=== PATIENT | female | born 1940 | race Caucasian/White ===

== ENCOUNTER 2016-09-15 17:38 | Emergency (ER) | payer MEDICARE, OTHER ==
[~2016-09-15] VITALS: Ht 167.6 cm; Wt 118.2 kg
[~2016-09-15 17:38] MED LIST: ALBU8.5H2 INHALATION; ASPI325T32 PO; BENZ-12 PO; FLUT16SP NS; FUR20 PO; GUAI10LI PO; HYDR-4003 PO; IRON150C6 PO; LEVO25TA5 PO; LEVO500T16 PO; LOSA50TA37 PO; NPR500T PO; OMEP20CA11 PO; POTA10TA12 PO; PRAM0.5T3 PO; PRED-508 PO; TIOT18CA3 INHALATION; TIZA4TAB4 PO; VALA100026 PO; ZOLP10TA5 PO
[2016-09-15 17:42] VITALS: BP 137/99; PULSE 108; RESP 20; O2SAT 94
--- NOTE | 2016-09-15 17:53 | ED.REPORT ---
HPI- Female Date of Service Sep 15, 2016 ED Provider: History of Present Illness: 76-year-old female here for dysuria, pelvic pressure since yesterday. Last UTI was when she had her children, is assumed 50 years ago. She may have also had one during one of her hospital stays here for pneumonia, she is unsure about this. Her symptoms are little less today than they were yesterday but her urine was cloudy and darker. No fever or back pain. No abdominal pain at this time. She just finished an antibiotic, doxycycline, in the last week for sinus infection. She has had diarrhea related to the sinus infection. She takes diuretics rapidly so her urinary stream is always full and plentiful. She took pyridium today. She admits to taking "wacky candy" [employer] to help with her chronic cough area patient has history of CHF, COPD, A. fib. Nursing Notes Stated Complaint: DARK URINE, HAYES WHEN PEE Chief Complaint: Female Abdominal Pain Nursing Notes Reviewed: Yes Allergies: Coded Allergies: strawberry (Verified Allergy, Intermediate, Swelling, 07/03/14) prednisone (Verified Adverse Reaction, Intermediate, THRUSH, SKIN REACTION , 11/20/15) Uncoded Allergies: RADHA (Allergy, Unknown, 06/08/15) Scheduled Cephalexin (Keflex) 500 Mg Capsule 500 MG PO BID Furosemide (Furosemide) 20 Mg Tab 20 MG PO DAILY Iron Polysaccharides Complex (Ferrex 150) 150 Mg Capsule 150 MG PO DAILY Levofloxacin (Levaquin) 500 Mg Tablet 500 MG PO DAILY Levothyroxine (Levothyroxine) 25 Mcg Tablet 25 MCG PO DAILY Losartan Potassium (Losartan Potassium) 50 Mg Tablet 50 MG PO DAILY Omeprazole (Omeprazole) 20 Mg Capsule.dr 20 MG PO BID Potassium Chloride ER (Potassium Chloride ER) 10 Meq Tablet.er 10 MEQ PO BID TAKE WITH FOOD Pramipexole Dihydrochloride (Mirapex) 0.5 Mg Tablet 0.5 MG PO QID Prednisone (Deltasone) 20 Mg Tablet 60 MG PO DAILY Tiotropium [place] (Spiriva) 18 Mcg Cap.w.dev 18 MCG INHALATION DAILY Scheduled PRN Albuterol HFA (Proair HFA) 8.5 Gm Hfa.aer.ad 2 PUFFS INHALATION QID PRN PRN For Shortness of Breath Aspirin (Aspirin) 325 Mg Tablet.dr 325 MG PO DAILY PRN PRN For Pain Benzonatate (Tessalon Perle) 100 Mg Capsule 100 MG PO TID PRN PRN For Cough Fluticasone Propionate (Fluticasone Propionate Nasal) 16 Gm [place].susp 1 SPRAY NS BID PRN PRN For Congestion Guaifenesin/Codeine Phosphate (Guaifenesin-Codeine Syrup) 10 Ml Liquid 5 ML PO Q4H PRN PRN For Cough Hydrocodone-Acetaminophen 5-325 mg (Hydrocodone-Acetaminophen 5-325 mg) 1 Each Tablet 1 EACH PO QID PRN PRN For Pain Naproxen (Naproxen) 500 Mg Tab 500 MG PO BID PRN PRN For Pain Tizanidine (Tizanidine) 4 Mg Tablet 4 MG PO TID PRN PRN For Spasm Valacyclovir (Valacyclovir) 1,000 Mg Tablet 2,000 MG PO BID PRN PRN cold sores x 1 day only prn cold sores Zolpidem (Zolpidem) 10 Mg Tablet 10 MG PO HS PRN PRN Insomnia General Time Seen by MD: 17:52 Chief Complaint Dysuria, Urine is dark Hx Obtained From: Patient Sudden in Onset?: Yes Onset Occurred: Yesterday Symptom Duration: Waxes and wanes Location: : Suprapubic Radiation: Does not radiate Severity: Current: No pain currently Severity: Maximum: Mild Similar Sx Previous: Yes Risk- Female Risk Notes: diarrhea, A fib, CHF, COPD Past Medical History Past Medical History Restless leg syndrome Hx of anemia Depression Osteoarthritis Anxiety Fibromyalgia COPD, CHF Reports: COPD, Congestive heart failure, GERD, Hyperlipidemia, Hypertension Reports: Atrial fibrillation, Obesity Past Surgical History mastoidectomy Reports: Cholecystectomy, Hysterectomy Reports: Tubal ligation Family History Mother and Father of lung cancer Smoking History Never Smoker Social History Alcohol Use: 1-3 per week Drug Use: Denies drug use Other Social History: Local resident Ambulatory Status Independent Review of Systems Basic Review of Systems Eyes: Vision NL, No discharge Respiratory: No shortness of breath, No cough, No wheeze Cardiovascular: No chest pain, No dyspnea on exertion, No orthopnea, No parox noct dyspnea, No palpitations Psychiatric: Normal thought content Constitutional: Denies: Chills, Fatigue, Fever Female: Reports: Dysuria, Pelvic pain, Denies: Flank pain, Hematuria, Urinary frequency, Urinary urgency, Urination decreased, Urination increased Musculoskeletal: Denies: Back pain Complete sys rev & neg: except as marked. Physical Exam Initial Vital Signs Vital Signs (First) Date Time Temp Pulse Resp B/P Pulse Ox O2 Delivery O2 Flow Rate FiO2 09/15/16 17:42 36.9 108 20 137/99 94 Initial VS: Reviewed, Vital signs normal General/Constitutional: Well-developed, Well-nourished Head / Eyes: Atraumatic, Normocephalic, PERRL Respiratory: Breath sounds normal, Clear to auscultation, No respiratory distress Cardiovascular: Heart sounds normal, Intact distal pulses Abdomen / GI: Soft, Non-tender, No guarding, No rebound, No distention Skin: Warm, Dry, No cyanosis Neurologic: Alert, Oriented, Nonfocal Psychiatric: Mood/affect normal, Behavior normal, Normal thought content Respiratory / Chest: Breath sounds NL, Breath sounds = bilat, No respiratory distress, No rales, No rhonchi, No wheezing Cardiovascular: Heart sounds NL, Peripheral circulation NL Heart Rate / Rhythm: Positive: Irreg irregular rhythm Interpretation & Diagnostics Lab Results Interpretation Test 09/15/16 18:10 Urine Color [place] (YELLOW) Urine Appearance Hazy (CLEAR,HAZY) Urine pH (5.0-8.0) Urine Specific [place] 1.020 (1.003-1.035) Urine Protein mg/dL (NEG,TRACE) Urine Glucose (UA) mg/dL (NEGATIVE) Urine Ketones mg/dL (NEGATIVE) Urine Occult Blood (NEGATIVE) Urine Nitrite (NEGATIVE) Urine Bilirubin (NEGATIVE) Urine Urobilinogen mg/dL (NORMAL) Urine Leukocyte Esterase (NEGATIVE) Urine RBC 0-2/hpf (0-2) Urine WBC 6-10/hpf (0-5) Urine Epithelial Cells Occasional/hpf (NONE-MOD) Urine Crystals None seen (NONE SEEN) Urine Bacteria Few/hpf (NONE-FEW) Urine Hyaline Casts None/lpf (NONE) Urine Granular Casts None seen (NONE SEEN) Urine Waxy Casts None seen (NONE SEEN) Urine Red Blood Cell Casts None seen (NONE SEEN) Urine White Blood Cell Casts None seen (NONE SEEN) Urine Mucus Present (None Seen) Urine Trichomonas None seen (NONE SEEN) Urine Yeast None (NONE SEEN) Urinalysis Comment Urine Culture Reflexed Indicated Re-Eval/Medical Decision Med Decision/Clinical Course Patient states the dark color she was concerned about was just the Pyridium she is taking. She is still having dysuria since yesterday treated for UTI with Keflex and she will follow up as indicated. Discharge & Departure Shift Change Sign-Out Laboratory Evaluation: Lab evaluation discussed Impression: Primary Impression: UTI (urinary tract infection) Urinary tract infection type: acute cystitis Hematuria presence: without hematuria Qualified Code: N30.00 - Acute cystitis without hematuria Disposition: Home Discharge Condition All VS Reviewed: Yes Condition: Stable Patient Instructions: Urinary Tract Infection in Women (DC) Additional Instructions: Take antibiotics as prescribed. Drink lots of water. If her symptoms do not improve in 24-48 hours return to emergency room. Follow-up with her doctor in 1 -2 days as well. Return immediately to emergency room if fevers, vomiting, back pain or any other concerning symptoms. Referrals: Jen Munguia MD (PCP) EDSupervising Provider for APC: Juan Thornton MD copies to: Jen Munguia MD, Linnea K [facility] Sep 15, 2016 17:53
[2016-09-15 18:35] LABS: COLOR,URINE ORANGE (YELLOW)
[2016-09-15 18:36] LABS: APPEARANCE,URINE HAZY (CLEAR,HAZY)
[2016-09-15] MEDS ORDERED: CEPH-512 PO (19:35)
[2016-09-15 19:52] VITALS: BP 137/99; PULSE 108; RESP 20; O2SAT 94
== END 2016-09-15 19:53 | disposition home or self-care (01) ==
LOC: SED 17:38
DX: N30.00 Acute cystitis without hematuria (principal); B96.4 Proteus (mirabilis) (morganii) as the cause of diseases classified elsewhere; I11.0 Hypertensive heart disease with heart failure; I50.9 Heart failure, unspecified; I48.91 Unspecified atrial fibrillation; J44.9 Chronic obstructive pulmonary disease, unspecified; E78.5 Hyperlipidemia, unspecified; K21.9 Gastro-esophageal reflux disease without esophagitis; F32.9 Major depressive disorder, single episode, unspecified; M79.7 Fibromyalgia; Z79.82 Long term (current) use of aspirin; Z88.8 Allergy status to other drugs, medicaments and biological substances; Z91.018 Allergy to other foods

== ENCOUNTER 2016-12-06 18:09 | Inpatient (IN) | payer MEDICARE, OTHER ==
[~2016-12-06] VITALS: Ht 167.6 cm; Wt 129.9 kg
[~2016-12-06 18:09] MED LIST changes: +CEPH-512 PO
[2016-12-06 18:14] VITALS: BP 171/71; PULSE 122; RESP 24; O2SAT 93
[2016-12-06 18:35] VITALS: BP 163/88; PULSE 98; RESP 23; O2SAT 97
--- NOTE | 2016-12-06 18:59 | ED.REPORT ---
HPI-Abd Pain F 40 and Over Date of Service Dec 06, 2016 ED Provider: Manny Neal MD This is a 76-year-old female with history of diverticulitis, kidney stones, COPD , hypertension who presents for abdominal pain. Pain started this morning around 5 AM patient woke up and went to bathroom and was straining so ended up using a Fleet glycerin suppository and subsequently 2 episodes of diarrhea. This is about the time of when the pain started she said. Her pain has been sustained in the left lower quadrant and feels better with walking as well as marijuana candy. She does note she had pain similar to this before with kidney stones and diverticulitis. She has had a cholecystectomy in the past and a hysterectomy. She has had chills since coming into the emergency department. She does note she is had increasing cough with green sputum production which she states is chronic. Also notes she has had a sinus infection and has not taken any antibiotics. She denies any current chest pain, and is slightly short of breath. Nursing Notes Stated Complaint: LEFT SIDE PAIN Chief Complaint: Female Abdominal Pain Nursing Notes Reviewed: Yes Allergies: Coded Allergies: strawberry (Verified Allergy, Intermediate, Swelling, 07/03/14) Uncoded Allergies: RADHA (Allergy, Unknown, 06/08/15) Scheduled Cephalexin (Keflex) 500 Mg Capsule 500 MG PO BID Furosemide (Furosemide) 20 Mg Tab 20 MG PO DAILY Iron Polysaccharides Complex (Ferrex 150) 150 Mg Capsule 150 MG PO DAILY Levofloxacin (Levaquin) 500 Mg Tablet 500 MG PO DAILY Levothyroxine (Levothyroxine) 25 Mcg Tablet 25 MCG PO DAILY Losartan Potassium (Losartan Potassium) 50 Mg Tablet 50 MG PO DAILY Omeprazole (Omeprazole) 20 Mg Capsule.dr 20 MG PO BID Potassium Chloride ER (Potassium Chloride ER) 10 Meq Tablet.er 10 MEQ PO BID TAKE WITH FOOD Pramipexole Dihydrochloride (Mirapex) 0.5 Mg Tablet 0.5 MG PO QID Prednisone (Deltasone) 20 Mg Tablet 60 MG PO DAILY Tiotropium [place] (Spiriva) 18 Mcg Cap.w.dev 18 MCG INHALATION DAILY Scheduled PRN Albuterol HFA (Proair HFA) 8.5 Gm Hfa.aer.ad 2 PUFFS INHALATION QID PRN PRN For Shortness of Breath Aspirin (Aspirin) 325 Mg Tablet.dr 325 MG PO DAILY PRN PRN For Pain Benzonatate (Tessalon Perle) 100 Mg Capsule 100 MG PO TID PRN PRN For Cough Fluticasone Propionate (Fluticasone Propionate Nasal) 16 Gm [place].susp 1 SPRAY NS BID PRN PRN For Congestion Guaifenesin/Codeine Phosphate (Guaifenesin-Codeine Syrup) 10 Ml Liquid 5 ML PO Q4H PRN PRN For Cough Hydrocodone-Acetaminophen 5-325 mg (Hydrocodone-Acetaminophen 5-325 mg) 1 Each Tablet 1 EACH PO QID PRN PRN For Pain Naproxen (Naproxen) 500 Mg Tab 500 MG PO BID PRN PRN For Pain Tizanidine (Tizanidine) 4 Mg Tablet 4 MG PO TID PRN PRN For Spasm Valacyclovir (Valacyclovir) 1,000 Mg Tablet 2,000 MG PO BID PRN PRN cold sores x 1 day only prn cold sores Zolpidem (Zolpidem) 10 Mg Tablet 10 MG PO HS PRN PRN Insomnia General Time Seen by MD: 18:40 Chief Complaint Abdominal pain Hx Obtained From: Patient Sudden in Onset?: Yes Past Medical History Past Medical History Restless leg syndrome Hx of anemia Depression Osteoarthritis Anxiety Fibromyalgia COPD, CHF Reports: COPD, Congestive heart failure, GERD, Hyperlipidemia, Hypertension Reports: Atrial fibrillation, Obesity Past Surgical History mastoidectomy Reports: Cholecystectomy, Hysterectomy Reports: Tubal ligation Family History Mother and Father of lung cancer Smoking History Former Smoker Social History Alcohol Use: 1-3 per week Drug Use: Denies drug use Other Social History: Local resident Ambulatory Status Independent Review of Systems Constitutional: Reports: Chills, Fever Respiratory: Reports: Prod cough, green Cardiovascular: Denies: Chest pain GI: Reports: Abdominal pain, Constipation, Diarrhea, Nausea, Denies: Hematochezia, Melena, Vomiting Female: Denies: Dysuria, Urinary frequency, Urinary urgency Complete sys rev & neg: except as marked. Physical Exam Vital Signs Vital Signs (First) Date Time Temp Pulse Resp B/P Pulse Ox O2 Delivery O2 Flow Rate FiO2 12/06/16 18:14 38.2 122 24 171/71 93 Nasal Cannula 12/06/16 18:35 3 Initial VS: Reviewed General/Constitutional: Awake, Alert, Cooperative Distress / Hydration: Positive: Distress mild On 3 L oxygen with tachypnea, crackles heard at left lung base. Decreased breath sounds in the lungs Cardiovascular: Regular rhythm, No murmurs Heart Rate / Rhythm: Positive: Tachycardia Abdomen: Soft, McBurney's non-tender Mild to moderate distention with mild LLQ > LUQ tenderness. Abdomen is protuberant and is difficult to assess for organomegaly or masses. No CVA tenderness. Dry skin, mild edema Interpretation & Diagnostics Lab Results Interpretation Result Diagram: 12/06/16 1845 12/06/16 1845 Test 12/06/16 18:45 12/06/16 20:45 White Blood Count 11.0th/mm3 (3.8-10.1) Red Blood Count 5.10mil/mm3 (3.90-5.20) Hemoglobin 13.6g/dL (12.0-15.6) Hematocrit 43.0% (35.0-46.0) Mean Corpuscular Volume 84.3fL (81-100) Mean Corpuscular Hemoglobin 26.7pg (27.0-35.0) Mean Corpuscular Hemoglobin Concent 31.6% (32.0-37.0) Red Cell Distribution Width 15.4% (12.3-15.4) Platelet Count 182bil/L (150-400) Neutrophils (%) (Auto) 90.3% (40-74) Lymphocytes (%) (Auto) 6.5% (14-46) Monocytes (%) (Auto) 1.8% (4-12) Eosinophils (%) (Auto) 0.6% (0-5) Basophils (%) (Auto) 0.3% (0-3) Sodium Level 141mEq/L (134-144) Potassium Level 3.5mEq/L (3.5-5.2) Chloride Level 98mEq/L (97-108) Carbon Dioxide Level 27mmol/L (18-29) Blood Urea Nitrogen 18mg/dL (8-27) Creatinine 0.75mg/dL (0.57-1.00) Estimat Glomerular Filtration Rate 108mL/min (>59) Glucose Level 137mg/dL (60-99) Lactic Acid Level 2.0mmol/L (0.4-2.0) Calcium Level 9.6mg/dL (8.5-10.1) Magnesium Level 2.1mg/dL (1.6-2.6) Total Bilirubin 0.4mg/dL (0.0-1.2) Aspartate Amino Transf (AST/SGOT) 26U/L (0-50) Alanine Aminotransferase (ALT/SGPT) 29U/L (0-32) Alkaline Phosphatase 79U/L (25-165) Total Protein 8.3g/dL (6.4-8.4) Albumin 4.5g/dL (3.4-5.0) Lipase 26U/L (13-60) Hold Sanchez Top Tube Received (Received) Urine Color Yellow (YELLOW) Urine Appearance Cloudy (CLEAR,HAZY) Urine pH 8.0 (5.0-8.0) Urine Specific [place] 1.015 (1.003-1.035) Urine Protein Tracemg/dL (NEG,TRACE) Urine Glucose (UA) Negativemg/dL (NEGATIVE) Urine Ketones Negativemg/dL (NEGATIVE) Urine Occult Blood Large (NEGATIVE) Urine Nitrite Positive (NEGATIVE) Urine Bilirubin Negative (NEGATIVE) Urine Urobilinogen Normalmg/dL (NORMAL) Urine Leukocyte Esterase Moderate (NEGATIVE) Urine RBC 0-2/hpf (0-2) Urine WBC 6-10/hpf (0-5) Urine Epithelial Cells Moderate/hpf (NONE-MOD) Urine Crystals Amorphous phosphates Urine Bacteria Many/hpf (NONE-FEW) Urine Hyaline Casts None/lpf (NONE) Urine Granular Casts None seen (NONE SEEN) Urine Waxy Casts None seen (NONE SEEN) Urine Red Blood Cell Casts None seen (NONE SEEN) Urine White Blood Cell Casts None seen (NONE SEEN) Urine Mucus None seen (None Seen) Urine Trichomonas None seen (NONE SEEN) Urine Yeast None (NONE SEEN) Urinalysis Comment None Urine Culture Reflexed Indicated Re-Eval/Medical Decision Med Decision/Clinical Course This is a 76-year-old male with history of COPD, hypertension, GERD who presents to the ED with left lower quadrant abdominal pain starting today. She also has increasing productive cough with green sputum and a reported sinus infection. Her symptoms of abdominal pain did resolve with Tylenol given in the ED, she was found to be febrile, tachycardic, tachypneic requiring 3 L of oxygen. She is on baseline oxygen at home of 2 L. She has white blood cell count of 11. UA shows moderate leukocyte esterase, positive nitrite and white blood cells 6-10. Chest x-ray shows left lower lobe pneumonia. Given her findings, she was given ceftriaxone and azithromycin for likely community- acquired pneumonia and possible UTI. Discussed with hospitalist with plan for admission. Re-Evaluation/Progress : Time of Eval: 21:45 )( Re-Eval Abdomen: Soft, Non-tender Patient Status: Condition improved Re-Evaluation/Progress Note: Patient was given Tylenol and had relief of her abdominal pain. Abdominal physical exam is unremarkable. Consultation : Referral / Consult Name: Ady Blanca MD Consulted With: Hospitalist Sports Photographer: Accepts admit Discharge & Departure Primary Impression: Pneumonia Pneumonia type: due to unspecified organism Laterality: left Lung location : lower lobe of lung Qualified Code: J18.1 - Lobar pneumonia, unspecified organism Additional Impression: UTI (urinary tract infection) Urinary tract infection type: site unspecified Hematuria presence: without hematuria Qualified Code: N39.0 - Urinary tract infection, site not specified Disposition: ADMITTED TO HOSPITAL Discharge Condition All VS Reviewed: Yes Condition: Stable Referrals: Jen Munguia MD (PCP) Attending Statement I personally examined this patient with Dr Blanton on 12/06. Agree with above. copies to: Jen Munguia MD, Malik A DO Dec 06, 2016 18:59 Manny Neal MD Dec 06, 2016 23:53
[2016-12-06] MEDS ORDERED: Ondansetron 2 mg/mL 2 mL Inj IVPUSH PRN ×2 (19:05→21:55)
[2016-12-06] MEDS ORDERED: HYDROmorphone 0.5 mg/0.5 mL iSecure Syringe IVPUSH PRN (19:05)
[2016-12-06] MEDS ORDERED: 0.9% Sodium Chloride 1,000 ML IV ONE (19:05)
[2016-12-06 19:14] LABS: BASOPHILS % (AUTO) 0.3 % (0-3); EOSINOPHILS % (AUTO) 0.6 % (0-5); MONOCYTES % (AUTO) 1.8 % (4-12); Mean Corpuscular Hemoglobin 26.7 pg (27.0-35.0); Mean Corpuscular Volume 84.3 fL (81-100); NEUTROPHILS % (AUTO) 90.3 % (40-74); Platelet Count 182 bil/L (150-400)
[2016-12-06 19:22] LABS: Magnesium 2.1 mg/dL (1.6-2.6)
[2016-12-06 19:26] VITALS: BP 168/93; PULSE 117; RESP 28; O2SAT 94
--- NOTE | 2016-12-06 19:50 | DRSVH ---
PROCEDURE: X-RAY CHEST ONE VIEW, PORTABLE ([id number]) INDICATIONS: fever low O2 sats TECHNIQUE: One view of the chest was acquired. COMPARISON: None. FINDINGS: Surgical changes and devices: athletic monitor leads are seen over the chest. Lungs and pleura: There is chronic elevation of the right hemidiaphragm. Depth of inspiration on thi s chest x-ray is relatively poor. No pleural effusions or pneumothorax. Probable small infiltrate at the left base. Probable subsegmental atelectasis at the right base. Mediastinum: Mediastinal contours appear normal. Aorta is elongated. Heart size is normal. Bones and chest wall: No suspicious bony lesions. Overlying soft tissues appear unremarkable. IMPRESSION: Changes of pneumonia in the left lower lung field laterally. Dictated by: Darnell Welsh M.D. on 12/06/2016 at 19:47 Approved by: Darnell Welsh M.D. on 12/06/2016 at 19:48
[2016-12-06 21:11] LABS: APPEARANCE,URINE CLOUDY (CLEAR,HAZY); COLOR,URINE YELLOW (YELLOW); OCCULT BLOOD,URINE LARGE (NEGATIVE); UROBILINOGEN,URINE NORMAL (NORMAL)
[2016-12-06] MEDS ORDERED: Alum-Mag Hydrox-Simeth 30 mL Suspension PO PRN (21:55)
[2016-12-06] MEDS ORDERED: cefTRIAXone Inj 2,000 MG in Dextrose 5% Minibag Plus 50 ML IV ONE (21:55)
[2016-12-06] MEDS ORDERED: Polyethylene Glycol (PEG) 17 Gm Powder PO PRN (21:55)
[2016-12-06 22:39] VITALS: BP 161/90; PULSE 114; RESP 24; O2SAT 95
--- NOTE | 2016-12-06 22:46 | PCM.HPMED ---
Subjective Date of Service Dec 06, 2016 Primary Provider: Admitting Physician: Ady Blanca MD Primary Care Physician: Jen Munguia MD Attending Physician: Ady Blanca MD Admit Status: From the Emergency Department, Remote Telemetry Chief Complaint: Left lower quadrant abdominal pain History of Present Illness: Ms. Bryanna Oseguera (Kay) is a 76-year-old woman with a past medical history significant for hypertension, hyperlipidemia, recurrent urinary tract infections , diverticulitis, nephrolithiasis, and COPD, that presented to the emergency department 12/06/2016 with a one-day history of constipation that led to left lower quadrant pain after administration of uwof-ocg-nixatlw laxatives. Initial evaluations in the emergency department revealed a chest x-ray with a possible left lower lobe pneumonia in addition to urinary studies that revealed a likely urinary tract infection. She is admitted for evaluation and treatment of possible pneumonia, likely UTI, and management of her abdominal pain. - Hospital day 1 Patient states that symptoms of constipation and straining initiated mounter flutes and piccolos today on admission. She attempted to relieve her constipation and straining with kvjp-anu-pzjkcjn laxatives, including a Fleet glycerin suppository. She subsequently developed 2 episodes of diarrhea, which were described as nonbloody, but she states her left lower quadrant abdominal pain began with her episodes of diarrhea. She denies any associated shortness of breath above baseline, fever, hematochezia, melena, dysuria, hematuria, or chest pain or palpitations. She does admit to brief onset of chills while she was in the emergency department, which have resolved. She also notes that her abdominal pain has resolved since her time in the emergency department. She notes an extensive history of shortness of breath on chronic oxygen therapy approximately 2-3 L secondary to COPD, she denies any acute dyspnea above baseline. She also notes a chronic cough with intermittent productive sputum, that is not above her baseline. She notes a recent history of prednisone use, but states her prednisone pack has completed, and she remains on inhaled steroids at this time. PCP is Jaylene Munguia, sewing machines salesperson is Dr. Ning Pichardo. Last pulmonology visit dated 06/20/2016; most recent PCP visit dated 11/18/2016. In the ED, T 38.2, P1 122, R 24, blood pressure 171/71, 93% on 3 L nasal cannula ; initial labs showed white count 11.0 with 80.3% neutrophils, hemoglobin 13.6, hematocrit 43.0, platelets 182; sodium 141, potassium 3.5, creatinine 0.75, glucose 137, lactic acid 2.0, LFTs within range, lipase 26; UA revealed large amount of occult blood, positive nitrites, moderate leukocyte esterase, moderate epithelial cells, and no white cells seen, culture was sent and pending ; blood cultures were also obtained prior to antibiotic administration; initial therapies included azithromycin 500 mg 1, ceftriaxone 2 g every 24h, acetaminophen 975 mg 1, and 1 L normal saline. Patient was transported to medical floor in stable condition. Review of Systems: Complete review of systems obtained, pertinent positives and negatives as noted in history of present illness Allergies Coded Allergies: strawberry (Verified Allergy, Intermediate, Swelling, 07/03/14) Uncoded Allergies: RADHA (Allergy, Unknown, 06/08/15) Home Medications NextGen Documentation dated 11/18/2016: Bryanna Oseguera. [id number] 11/18/2016 11:20 AM 04/20 Medications (Added or Continued this visit) Start Date Medication Directions Stop Date 05/07/2016 albuterol sulfate 2.5 mg/3 mL (0.083 %) solution for nebulization inhale 3 milliliter by nebulization route every 4 hours for breathing. 03/28/2014 aspirin 325 mg tablet take 1 tablets by ORAL route every day as needed 01/29/2016 chlorpheniramine ER 12 mg tablet,extended release take 1 tablet by oral route every 12 hours as needed for allergies 07/24/2015 Daily Multiple tablet take 1 tablet by oral route every day with food LAILA-C 2 twice daily Fish Oil 1 daily 11/20/2015 Flonase 50 mcg/actuation nasal spray,suspension USE ONE SPRAY(S) IN EACH NOSTRIL 1-2 TIMES DAILY FOR ALLERGIES 11/20/2016 hydrocodone 5 mg-acetaminophen 325 mg tablet take 1 Tablet by ORAL route 4 times a day as needed for pain 12/19/2016 11/18/2016 Lasix 20 mg tablet TAKE 2 TABLETS BY MOUTH 2 TIMES DAILY IN THE MORNING and AFTERNOON 10/18/2016 LEVOTHYROXIN 25MCG TAB TAKE ONE TABLET BY MOUTH ONCE DAILY FOR THYROID 04/25/2015 levothyroxine 50 mcg tablet take 1 tablet by oral route every day on an empty stomach 07/08/2016 LOSARTAN 50MG TAB TAKE ONE TABLET BY MOUTH ONCE DAILY FOR HIGH BLOOD PRESSURE 07/05/2016 Mirapex 0.5 mg tablet TAKE ONE TABLET BY MOUTH 4 TIMES DAILY 06/24/2016 montelukast 10 mg tablet take 1 tablet by oral route every day in the evening PEDIA-LAX as needed 01/29/2016 potassium chloride ER 10 mEq tablet,extended release take 1 tablet by oral route once daily with food 11/18/2016 prednisone 5 mg tablet take 1 tablet by oral route every day with food 11/21/2015 ProAir HFA 90 mcg/actuation aerosol inhaler inhale 2 puff by inhalation route every 4 - 6 hours as needed for shortness of breath/wheezing 04/18/2016 Pulmicort Flexhaler 180 mcg/actuation breath activated inhale 1 puff by inhalation route 2 times every day for breathing. Rinse mouth after use. 04/26/2016 ranitidine 150 mg tablet take 1 tablet by oral route 2 times every day for heartburn/reflux 04/26/2016 Spiriva with HandiHaler 18 mcg and inhalation capsules inhale 1 capsule by inhalation route every day Stool Softener take 1 capsule by oral route every day at bedtime as needed 06/20/2016 Symbicort 160 mcg-4.5 mcg/actuation HFA aerosol inhaler inhale 2 puff by inhalation route 2 times every day in the morning and evening 08/27/2016 TiZANidine 4MG TAB TAKE ONE TABLET BY MOUTH 2 TO 3 TIMES DAILY NEEDED FOR MUSCLE SPASM (REPLACING CYCLOBENZAPRINE) VITAMIN D-400 1 daily 07/24/2015 Vivarin 200 mg tablet as needed 07/30/2016 zolpidem 10 mg tablet TAKE ONE TABLET BY MOUTH AT BEDTIME NEEDED FOR INSOMNIA The patient was checked out at 11:46 AM. Patient denies any changes to medication since her visit with her primary care physician on the date noted above. 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 Son was tested positive for PPD, patient has since been tested and has been negative. Extensive travel history including [place], [place], [place], and [facility]. Surgical History Cholecystectomy Hysterectomy Bilateral cataracts Family History Father: Lung cancer, alcoholism, myocardial infarction Grandmother: Diabetes Mother: Lung cancer, depression Patient is an only child Social History Hx Alcohol Use: Yes (2 cocktails every week) Hx Substance Use: Yes (marijuana daily for cough) Smoking Status: Former Smoker Living Arrangement: with Family Exam Vital Signs Vital Sign - Last Date Time Temp Pulse Resp B/P Pulse Ox O2 Delivery O2 Flow Rate FiO2 12/06/16 19:26 117 28 168/93 94 Nasal Cannula 3 12/06/16 18:14 38.2 Exam General: Alert and oriented 3; obese woman resting supine in bed in no acute distress HEENT: Atraumatic, normocephalic, sclera anicteric, membranes moist; NC in place Neck: Full range of motion without pain Cardiac: Tachycardic rate and regular rhythm at time of examination without any appreciable murmurs Respiratory: Equal and adequate airflow all olivares without any wheeze or rhonchi ; no use of accessory muscles Chest: Atraumatic without any reproducible pain with palpation Abdomen: Soft, nontender, nondistended, obese; no pain at time of admission Extremities: Moderate bilateral lower extremity edema extending from dorsum to knees with chronic venous stasis changes Skin: Warm and dry MSK: 5/5 strength 4/4 extremities at major joints of the shoulder, hip Neuro: Cranial nerves II-XII grossly intact, speech without slur, facial expressions equal and symmetric Psych: Appropriate mood, affect, and responses to questions; good insight and judgment; patient was noted to be somewhat upset with decision for admission Lab and Diagnostics Result Diagram: 12/06/16184412/06/161844 Assessment & Plan Ms. Bryanna Oseguera (Kay) is a 76-year-old woman with a past medical history significant for hypertension, hyperlipidemia, recurrent urinary tract infections , diverticulitis, nephrolithiasis, and COPD, that presented to the emergency department 12/06/2016 with a one-day history of constipation that led to left lower quadrant pain after administration of zwaj-blt-rfzkqfp laxatives. Initial evaluations in the emergency department revealed a chest x-ray with a possible left lower lobe pneumonia in addition to urinary studies that revealed a likely urinary tract infection. She is admitted for evaluation and treatment of possible pneumonia, likely UTI, and management of her abdominal pain. - Hospital day 1 Sepsis, acute, present on admission, under evaluation - On admit: T 38.2, P 122, R 24; likely source UTI, possible PNA - White count on admission: 11.0 with 90.3% neutrophils; this may be slightly elevated above reference range secondary to recent steroid use, and possibly early indication of developing infection - In ED: Abx azithromycin plus ceftriaxone; will continue at this time - Tele - Treat underlying causes Urinary tract infection, acute, present on admission, under therapy - Patient denied any urinary symptoms such as dysuria, hematuria, flank pain; but did admit to recent history of left lower quadrant pain on admission - Abdominal pain resolved after administration of Tylenol in ED - Initial UA: Large amount occult blood, positive nitrites, moderate leukocyte esterase, moderate epithelial cells, with many bacteria, culture was sent, currently pending - Likely the source of sepsis as noted above - Continue antibiotics as noted above Possible pneumonia, likely acute, present on admission, under evaluation - Patient reports history of significant lung disease without new respiratory symptoms including any increase above baseline in cough or sputum production - Antibiotics as noted above, we will continue azithromycin at this time secondary to anti-inflammatory effects - Repeat 2 view chest x-ray morning - Labs: Pro-calcitonin, respiratory viral swab, strep pneu urine, legionella urine, sputum cx Constipation with resultant abdominal pain of left lower quadrant, acute, resolved at time of admission - Patient noted acute onset of abdominal pain earlier this morning which was initiated by use of laxatives for constipation which resulted in diarrhea episodes - Patient denied any abnormal color stools, including the presence of blood - Patient denied any ongoing abdominal pain at time of admission - We will continue to monitor for any GI symptoms - Abdominal pain likely secondary to use of glycerin suppositories and resultant cramping from colon and stool mobilizing Chronic hypoxemic respiratory failure secondary to advancing COPD, presumed stable - Not likely an acute exacerbation secondary to lack of symptoms including increased sputum production, increase in cough baseline, or increase in oxygen needs - Patient reports home oxygen use approximately 2-3 L, notably with exertion but not required at rest - We will continue to monitor and initiate home medications when reconciliations completed - Outpatient sewing machines salesperson: Dr. Kylee Azul qidwa + accunebs q2h; no systemic steroids indicated at this time Hypothyroidism, chronic, presumed stable - Resume home medications when reconciliation complete and when appropriate Hypertension, chronic, presumed stable - Resume home medications when reconciliation complete and when appropriate Restless leg syndrome, chronic, presumed stable - Resume home medications when reconciliation complete and when appropriate PRN fever, bowel, nausea, pain DVT: Hep q8 Diet: Heart GI: H2B IVF: NS 100 Code: FULL CODE Patient is admitted under inpatient status with expected length of stay greater than 2 midnights due to severity of presenting symptoms, risk of adverse event, and complexity of treatment plan. Pain Evaluation: Adequate Pain Control GI Prophylaxis: H2 tomy VTE Prophylaxis: Sub-Q Heparin (Unfractionated) Resuscitation Status: DNR/DNI:Do Not Resuscitate/Intubate Attending Statement The patient was seen and examined together with Dr. Mckeon on 12/06 and I agree with the history, exam and plan as outlined in the note above. copies to: Ning Pichardo MD; Jen Munguia MD, Lindsay R DO Dec 06, 2016 22:46 Ady Blanca MD Dec 07, 2016 19:19
[2016-12-06 22:50] VITALS: BP 136/92; PULSE 107; RESP 22; O2SAT 95
--- NOTE | 2016-12-06 22:55 | NUR ---
Admission Note Pt admitted to [facility] from ER on stretcher at 2245, alert and orientedx3, states generalized pain 2/10, cough intermittently, small green sputum, SOB with activities. Burning sensation with urination. Denies N/V/Abdominal pain/fever/chills. BP 136/92 HR 102 RR 22, SPO2 95% on O2 4l, will place [employer]AW FEEDER and titrate O2 based on SPO2 due to HX COPD. T 37.1. Moderately decreased lung sounds, no crackles or wheezes note. HR 102,regular, no murmur. Tele: SR 102. Abdomen soft, non tender,BT slightly hypoactive. Mild edema at LEs. Call light oriented to pt, bed alarm on. Care ongoing.
[2016-12-06] MEDS: Albuterol 2.5 mg/3 mL Inhalation Solution NEB PRN (23:58)
[2016-12-06 23:59] VITALS: PULSE 84; RESP 22; O2SAT 95
[2016-12-07] VITALS (18 sets, daily range): BP systolic 87–186; BP diastolic 55–88; PULSE 69–130; RESP 18–40; O2SAT 88–98
[2016-12-07] MEDS: 0.9% Sodium Chloride 1,000 ML IV SCH ×3 (00:17→13:23)
[2016-12-07] MEDS: Heparin 5,000 Unit/mL Inj SUBQ SCH ×4 (00:18→23:54)
--- NOTE | 2016-12-07 02:01 | NUR ---
Samples for Sputum culture, MSRA and Respiratory CPR sent to lab.
[2016-12-07] MEDS ORDERED: RANI150C4 PO (04:09)
[2016-12-07] MEDS ORDERED: POTA10TA12 PO (04:09)
[2016-12-07] MEDS ORDERED: FURO-129 PO (04:09)
[2016-12-07] MEDS ORDERED: Stool Softner ORAL (04:09)
[2016-12-07] MEDS ORDERED: DAILY MULTIPLE ORAL (04:09)
[2016-12-07] MEDS ORDERED: PRD5T PO (04:09)
[2016-12-07] MEDS ORDERED: VITAMIN D ORAL (04:09)
[2016-12-07] MEDS ORDERED: [UNRECOGNIZED DRUG - CODE] RECTAL (04:09)
[2016-12-07] MEDS ORDERED: SYMINH INHALATION (04:09)
[2016-12-07] MEDS ORDERED: ASCO1TAB12 PO (04:09)
[2016-12-07] MEDS ORDERED: ALBU2.5V4 NEB (04:09)
[2016-12-07] MEDS ORDERED: LEVO50TA6 PO (04:09)
[2016-12-07] MEDS ORDERED: VIVARIN ORAL (04:09)
[2016-12-07] MEDS ORDERED: CHLORPHENIRAMINE ORAL (04:09)
[2016-12-07] MEDS ORDERED: MONT10TA23 PO (04:09)
[2016-12-07] MEDS ORDERED: OMEG500C PO (04:09)
[2016-12-07] MEDS ORDERED: FLUT9.9S NS (04:09)
[2016-12-07 06:00] LABS: BASOPHILS % (AUTO) 0.1 % (0-3); EOSINOPHILS % (AUTO) 0.1 % (0-5); MONOCYTES % (AUTO) 5.2 % (4-12); Mean Corpuscular Hemoglobin 26.6 pg (27.0-35.0); Mean Corpuscular Volume 85.6 fL (81-100); NEUTROPHILS % (AUTO) 89.9 % (40-74); Platelet Count 158 bil/L (150-400)
[2016-12-07] MEDS: HYDROcodone-APAP 5-325 mg Tablet PO PRN ×3 (06:13→23:53)
[2016-12-07] MEDS: Budesonide 0.5 mg/2 mL Inhalation Solution NEB SCH ×3 (07:47→20:30)
[2016-12-07] MEDS: Albuterol-Ipratropium 3 mL Inhalation Solution NEB SCH ×4 (07:47→20:11)
[2016-12-07] MEDS ORDERED: 0.9% Sodium Chloride 1,000 ML IV ONE (07:55)
[2016-12-07] MEDS ORDERED: Piperacillin-Tazo 3.375 Gm Inj 3.375 GM in Dextrose 5% Minibag Plus 50 ML IV ONE (07:55)
--- NOTE | 2016-12-07 10:05 | NUR ---
To PCC Patient was porter in color, wheezing, and SOB upon assessment. Patient able to open eyes temporarily and speak one word sporadically. Patient oxygen was increased to 6L and RT was called. Nurse also called charge nurse and notified MD of patients condition. Patient was transferred to [facility] 2028 and report given to Kristi WAITE on PCC. Patient transferred to [facility] at 1050. Daughter was notified.
[2016-12-07] MEDS: Acetaminophen IV 1,000 MG in IV Premix 1 EACH IV PRN (10:35)
[2016-12-07] MEDS: Fluticasone 0.05% 15 Spray/2 Gm 16 Gm Nasal Spray NASAL SCH ×2 (10:35→21:13)
--- NOTE | 2016-12-07 12:48 | DRSVH ---
PROCEDURE: X-RAY CHEST ONE VIEW, PORTABLE ([id number]) INDICATIONS: poss PNA TECHNIQUE: One view of the chest was acquired. COMPARISON: [facility], CR, XR CHEST 2VW, 06/20/2016, 11:06. [facility], CR , XR CHEST 1VW (PORTABLE), 12/06/2016, 19:28. FINDINGS: Surgical changes and devices: None. Lungs and pleura: Left basilar infiltrate suspicious for pneumonia. Chronic right hemidiaphragm elev ation and right basilar atelectasis. No pleural effusions or pneumothorax. Mediastinum: Mediastinal contours appear normal. Heart size is normal. Bones and chest wall: No suspicious bony lesions. Overlying soft tissues appear unremarkable. IMPRESSION: 1. Left basilar infiltrate suspicious for pneumonia. 2. Chronic right hemidiaphragm elevation right basilar atelectasis. Dictated by: Roseline Contreras M.D. on 12/07/2016 at 12:43 Approved by: Roseline Contreras M.D. on 12/07/2016 at 12:46
[2016-12-07] MEDS: Piperacillin-Tazo 3.375 Gm Inj 3.375 GM in Dextrose 5% Minibag Plus 50 ML IV SCH ×2 (13:31→21:14)
--- NOTE | 2016-12-07 14:15 | PCM.PNMED ---
Subjective Date of Service Dec 07, 2016 Subjective pt became obtuned this AM, afebrile, tachycardic, Given impression of worsening sepsis, abx broadened to zosyn 1liter bolus given followed by 100cc/hr pt noted to hypoxic pO2 55 on Oxymask, transferred to [facility] for further monitoring, Later PM, pt became alert and oriented, tachycardia improved. Exam Vital Signs Vital Sign - Last Date Time Temp Pulse Resp B/P Pulse Ox O2 Delivery O2 Flow Rate FiO2 12/07/16 11:30 115 22 96 HHFNC 40 LPM 50 12/07/16 11:30 40 12/07/16 08:57 38.8 117/72 Intake and Output 12/06/16 12/06/16 12/07/16 Cumulative From/Thru 15:00 23:00 07:00 12/06/16 18:14 - 12/07/16 06:23 Intake Total 1000 ml 799 ml 1799 ml Output Total 150 ml 150 ml Balance 1000 ml 649 ml 1649 ml Intake Oral 300 ml 300 ml IV Total 1000 ml 499 ml 1499 ml Output Urine Total 150 ml 150 ml # Voids 1 1 Exam NAD, comfortably laying down on the bed no JVD, MMM, no LAD tachy regular, nl s1, s2 no mrg bilateral crackles, no wheezing S,ND,NT,normoactive BS+ warm, no edema, pulses 2/2 IVs and Medications Medications Reviewed: Medications were reviewed in detail Lab and Diagnostics Result Diagram: 12/07/16 0545 12/07/16 0545 Assessment & Plan Ms. Bryanna Oseguera (Kay) is a 76-year-old woman with a past medical history significant for hypertension, hyperlipidemia, recurrent urinary tract infections , diverticulitis, nephrolithiasis, and COPD, that presented to the emergency department 12/06/2016 with a one-day history of constipation that led to left lower quadrant pain after administration of ahjd-ren-sabfwet laxatives. Initial evaluations in the emergency department revealed a chest x-ray with a possible left lower lobe pneumonia in addition to urinary studies that revealed a likely urinary tract infection. She is admitted for evaluation and treatment of possible pneumonia, likely UTI, and management of her abdominal pain. acute, active severe sepsis, POA, On admit: T 38.2, P 122, R 24; likely source UTI, possible PNA, pt became clinically worsened even with CFX, abx broadened, BCX 3/3 GNR, likely from urine primary. -telemetry IVF 100cc/hr, keep MAP>65, -treat infection as below acute on chronic hypoxemic resp failure in the setting of sepsis, underlying COPD, POA, pt doesn't have baseline hypercapnia -continue HFNC, may transition to Oxymask, NC target O2>95% - Patient reports home oxygen use approximately 2-3 L, notably with exertion but not required at rest - Outpatient brands editor: Dr. Kylee Azul qidwa + accunebs q2h; no systemic steroids indicated at this time Urinary tract infection, POA, UA/UCX+, third episode in a month, it's likely partially treated from outpt tx or resistant organism, -awaits final UCX, Possible pneumonia,POA, pt recently had asthma exacerbation, finished steroid course, no obvious s/s of PNA other than hypoxia - Antibiotics as noted above, we will continue azithromycin at this time secondary to anti-inflammatory effects -trend Pro-calcitonin, respiratory viral swab, strep pneu urine, legionella urine, sputum cx chronic, stable, resolved Constipation with resultant abdominal pain of left lower quadrant, acute, resolved at time of admission - Patient noted acute onset of abdominal pain earlier this morning which was initiated by use of laxatives for constipation which resulted in diarrhea episodes - Patient denied any abnormal color stools, including the presence of blood - Patient denied any ongoing abdominal pain at time of admission - We will continue to monitor for any GI symptoms - Abdominal pain likely secondary to use of glycerin suppositories and resultant cramping from colon and stool mobilizing Hypothyroidism, chronic, presumed stable - Resume home medications when reconciliation complete and when appropriate Hypertension,hold BP meds with sepsis Restless leg syndrome, chronic, presumed stable - Resume home medications when reconciliation complete and when appropriate PRN fever, bowel, nausea, pain DVT: Hep q8 Diet: Heart GI: H2B IVF: NS 100 Code: FULL CODE dispo: likely prolonged given acute dz status, appropriate for PCC GI Prophylaxis: H2 tomy VTE Prophylaxis: Sub-Q Heparin (Unfractionated) VTE Mechanical Devices: Intermittant Pneumatic CD Resuscitation Status: DNR/DNI:Do Not Resuscitate/Intubate Time spent 35min Gareth Hall MD Dec 07, 2016 14:01
--- NOTE | 2016-12-07 18:01 | NUR ---
Transfer, Confusion, Oxygen 0835 - Received report from Liliana Bosch RN on [facility]. 0845 - She arrived from [facility] 3017 to [facility] 2028 and was settled into her room. She was able to be awakened fairly easily and answered orientation questions appropriately, but she was forgetful about care that had previously taken place. She was febrile at 38.8 C and hot to the touch. Was on 6L of O2 with an SpO2 of about 93% and was tachypneic with labored breathing. She was given IV Tylenol and ice packs which brought her temperature back within normal limits (see vitals charting for details). About 0945 - Staff heard her SpO2 monitor beeping and went into the room to find her out of bed, in the bathroom using the restroom, her IV out, blood dripped on the floor and smeared on the mcclelland, and her Oxymask of 6L off. Spoke to her about calling for assistance next time she needed to get up out of bed and she said she couldn't find the call light. Staff had made sure before leaving the previous time that she had her call light within sight and reach. She seemed a bit disoriented and forgetful. Staff cleaned her up, got her back to bed, and placed a personal [place] alarm on her. A new IV was started shortly after and IV fluids were resumed. 1058 - Paged Dr. Hall as she kept requesting to speak to him. He said he would come and see her soon. He also said to place her on Highflow Oxygen to keep her SpO2 above 95%. Called Respiratory Therapist Jessica Choi and notified her of his orders. This information was acknowledged and she was set up on Highflow O2 40L and 50%. 1300 - The patient and her daughter were asking to see the Doctor as he had not come yet. Paged Dr. Hall who said he would come to see them which he did. Notified him that her blood cultures came back positive for Gram negative rods for 3/3 samples. Discussed with him how Respiratory Therapy thought that she could tolerate an Oxymask instead of the Highflow. He said to keep her on the Highflow for now and to titrate her down to an Oxymask later as tolerated. Respiratory Therapist Jessica Choi notified. Care continues.
[2016-12-07] MEDS: diphenhydrAMINE 25 mg Capsule PO PRN (18:38)
[2016-12-07] MEDS ORDERED: cefTRIAXone Inj 2,000 MG in Dextrose 5% Minibag Plus 50 ML IV SCH (22:00)
[2016-12-08] VITALS (15 sets, daily range): BP systolic 101–128; BP diastolic 52–72; PULSE 65–106; RESP 18–24; O2SAT 91–98
[2016-12-08] MEDS: Albuterol 2.5 mg/3 mL Inhalation Solution NEB PRN (00:33)
[2016-12-08] MEDS: Acetaminophen IV 1,000 MG in IV Premix 1 EACH IV PRN (03:37)
[2016-12-08 03:44] LABS: EOSINOPHILS % (AUTO) 2.1 % (0-5); Mean Corpuscular Hemoglobin 27.1 pg (27.0-35.0); Mean Corpuscular Volume 89.1 fL (81-100); NEUTROPHILS % (AUTO) 82.2 % (40-74); Platelet Count 127 bil/L (150-400)
[2016-12-08 03:45] LABS: BASOPHILS % (AUTO) 0.2 % (0-3)
[2016-12-08] MEDS: Piperacillin-Tazo 3.375 Gm Inj 3.375 GM in Dextrose 5% Minibag Plus 50 ML IV SCH ×3 (03:56→19:33)
[2016-12-08] MEDS: 0.9% Sodium Chloride 1,000 ML IV SCH ×2 (05:30→15:38)
--- NOTE | 2016-12-08 06:02 | NUR ---
P) Respiratory/pain Pt. alert and oriented, lungs with coarse breath sounds and scattered squeaks in bases, later in night had audible wheezing after walking 10 steps to and from the bathroom, moist, bronchospastic cough that pt. states is productive of green and clear phlegm. Pt.'s only c/o pain is a headache, partially relieved with hydrocodone. Pt. stated also that she has problems with constipation. I) Stool softener and other meds per 's orders, cont. to monitor, SBA to bathroom. E) Resting quietly with eyes closed.
[2016-12-08] MEDS: Budesonide 0.5 mg/2 mL Inhalation Solution NEB SCH ×2 (08:02→20:29)
[2016-12-08] MEDS: Albuterol-Ipratropium 3 mL Inhalation Solution NEB SCH ×4 (08:03→20:29)
[2016-12-08] MEDS: HYDROcodone-APAP 5-325 mg Tablet PO PRN ×3 (08:12→21:20)
[2016-12-08] MEDS: Fluticasone 0.05% 15 Spray/2 Gm 16 Gm Nasal Spray NASAL SCH ×2 (09:27→19:33)
[2016-12-08] MEDS: Heparin 5,000 Unit/mL Inj SUBQ SCH ×2 (09:29→17:32)
[2016-12-08] MEDS ORDERED: KCl 40 mEq/D5W 500 mL 20 MEQ in IV Premix 1 EACH IV ONE (11:00)
[2016-12-08] MEDS ORDERED: Potassium Chloride Inj 20 MEQ in Dextrose 5% 250 ML IV ONE (11:15)
--- NOTE | 2016-12-08 15:13 | NUR ---
Social Work: Initial Assessment/Multidisciplinary Rounds D: EMR reviewed. Please see initial assessment linked for more information. Pt is a 76 y/o female [place] - readmit risk score of 5 - for UTI, sepsis, and pneumonia per H&P. Pt's insurance is [employer] and [employer]. PCP is Jen Munguia MD. SW met with pt at bedside to conduct initial assessment. Pt was alert and oriented x3. SW explained role, wrote phone number on board in room, and provided [facility] Discharge Planning Checklist and encouraged pt to contact SW with any discharge planning needs or questions. Pt discussed in multidisciplinary rounds and anticipated to remain hospitalized for 1-2 more days pending progress. No SW needs identified, no MD orders received. SW discussed potential needs at time of discharge - MD denied any needs at this time. Pt gave verbal consent to contact daughter Josefina Oseguera [phone] for discharge planning. Pt stated she has DPOA/advanced directive ppw at home and will provide the hospital with a copy once completed. Pt lives at home alone where she remains independent with ADLs. Pt uses a 4WW with seat in the mornings and a cane throughout the day for ambulation. Pt is on 2L of O2 at baseline - supplied by [facility]. SW discussed discharge planning and asked pt about any discharge planning concerns - pt declines at this time. Pt states her daughter or neighbor will provide transport home when medically stable. SW will continue to follow. A: Pt who is independent at baseline P: Pt anticipated to discharge home with neighbor or daughter via POV. No SW needs identified at this time, no MD orders received. SW will continue to follow until time of discharge for any needs that may arise. MARIA INES Perera Addendum: 12/08/16 at 1520 by EMELI URIOSTEGUI Amended: Links added.
--- NOTE | 2016-12-08 15:47 | PCM.PNMED ---
Subjective Date of Service Dec 08, 2016 Subjective Patient was transferred to [facility] from third floor, was febrile requiring Tylenol and ice pack. She was tended tachypneic and tachycardiac with the overall impression of worsening sepsis. Antibiotics broadened to Zosyn, fluids given Overnight: She does remain alert and oriented though has coarse breath sounds moderately wheezing after walking in room. Patient has a persistent cough productive of green and clear phlegm. Patient states she continues to have a headache which is somewhat relieved with pain medicine Today she states her headache persists, she is used to taking more pain medicines and she is currently receiving. Denies any other complaints aside from the headache, no chest pain , no pain changes in GI or . Does state that she has a productive cough which is persistent Exam Vital Signs Vital Sign - Last Date Time Temp Pulse Resp B/P Pulse Ox O2 Delivery O2 Flow Rate FiO2 12/08/16 06:22 65 12/08/16 03:15 36.7 20 101/60 91 Nasal Cannula 6.00 12/07/16 15:24 40 Intake and Output 12/07/16 12/07/16 12/08/16 Cumulative From/Thru 15:00 23:00 07:00 12/06/16 18:14 - 12/08/16 06:47 Intake Total 1000 ml 2157 ml 2005 ml 6961 ml Output Total 300 ml 450 ml Balance 1000 ml 2157 ml 1705 ml 6511 ml Intake Oral 1130 ml 400 ml 1830 ml IV Total 1000 ml 1027 ml 1605 ml 5131 ml Output Urine Total 300 ml 450 ml # Voids 3 2 6 # Bowel Movements 0 0 Exam General: Obese female Awake and alert lying in hospital bed in no acute distress , well-developed, well-nourished, appropriately interactive HEENT: Normocephalic, atraumatic. Neck: Supple with full range of motion. No jugular venous distension. No bruits. Altered appreciated secondary to body habitus Cardiovascular: Regular rate and rhythm with no murmurs, rubs, or gallops appreciated Pulmonary: Diminished lung sounds upper and anterior lobes, slight crackles on inhalation. Normal respiratory effort with no use of accessory muscles. Abdomen: Bowel tones present. Soft, nontender, nondistended. Extremities: Bilateral lower extremity edema, nonpitting. Skin: Normal temperature, turgor, and texture Neurological: Cranial nerves grossly intact. Psychiatric: Normal mood and affect. Alert and oriented to person, place, and time. IVs and Medications Medications Reviewed: Medications were reviewed in detail Lab and Diagnostics Result Diagram: 12/08/1632412/08/16324 X-Rays, CTs and MRIs . X-RAY CHEST ONE VIEW, PORTABLE IMPRESSION: Changes of pneumonia in the left lower lung field laterally. Dictated by: Darnell Welsh M.D. on 12/06/2016 X-RAY CHEST ONE VIEW, PORTABLE IMPRESSION: 1. Left basilar infiltrate suspicious for pneumonia. 2. Chronic right hemidiaphragm elevation right basilar atelectasis. Dictated by: Roseline Contreras M.D. on 12/07/2016 Assessment & Plan is a 76 yo F with PMH of HTN, HLD, recurrent UTI, diverticuilitis, for lithiasis and COPD, admitted for possible pneumonia, UTI and abdominal pain. Sepsis, acute, present on admission, ongoing - On admit: T 38.2, P 122, R 24; likely source UTI, possible PNA - Now normotensive with regular rate, afebrile - 4 of 4 Blood cultures positive for gram-negative lucie - Urine grew Proteus mirabalis - Concern for possible aspiration - Antibiotics, Zosyn, azithromycin - Tele - Treat underlying causes - Infectious disease consult Urinary tract infection, acute, present on admission, ongoing - Patient denied any urinary symptoms such as dysuria, hematuria, flank pain; but did admit to recent history of left lower quadrant pain on admission - No current abdominal pain - Urinalysis as above and urine culture - Likely the source of sepsis as above - Continue antibiotics as above Possible pneumonia, likely acute, present on admission, ongoing - Patient reports history of significant lung disease without new respiratory symptoms including any increase above baseline in cough or sputum production - Antibiotics as noted above, we will continue azithromycin at this time secondary to anti-inflammatory effects - Pro-calcitonin significant spike today 12.25 from 0.87, most likely secondary to aspiration - Appropriate cultures and serologies ordered, negative to date Bacteremia, present on admission, ongoing - Blood cultures as above - Antibiotics as above Constipation with resultant abdominal pain of left lower quadrant, acute, resolved at time of admission - Patient noted acute onset of abdominal pain . The morning of admission, self- administered laxatives with resultant diarrhea. No report of blood or abnormally colored stools - Abdominal pain, currently resolved - Most likely secondary to use of suppositories and resultant hypermotility of the colon - Continue to monitor Chronic hypoxemic respiratory failure secondary to advancing COPD, ongoing - Not likely an acute exacerbation secondary to lack of symptoms including increased sputum production, increase in cough baseline, or increase in oxygen needs - Patient reports home oxygen use approximately 2-3 L, notably with exertion but not required at rest - Patient states chronic sinusitis with productive cough - Outpatient deputy k 9: Dr. Kylee Azul qidwa + accunebs q2h; no systemic steroids indicated at this time, hold home prednisone Hypothyroidism, chronic, presumed stable - Continue home levothyroxine Hypertension, chronic, presumed stable - Continue home furosemide, losartan Restless leg syndrome, chronic, presumed stable - Continue home tizanidine ausea, pain DVT: Hep q8 Diet: Heart GI: H2B IVF: NS 100 Code: FULL CODE Patient Status: Patient was admitted under inpatient status with expected length of stay greater than two midnights due to severity of presenting symptoms , risk of adverse event, and complexity of treatment plan. GI Prophylaxis: H2 tomy VTE Prophylaxis: Sub-Q Heparin (Unfractionated) VTE Mechanical Devices: Intermittant Pneumatic CD Resuscitation Status: DNR/DNI:Do Not Resuscitate/Intubate Time spent 30 minutes Attending Statement Patient has been seen and examined by myself with senior medical writer and agree with above history, physical, assessment and plan. JULI MULLINS DO Dec 08, 2016 07:58 Purvi Aguirre MD Dec 08, 2016 16:48
--- NOTE | 2016-12-08 18:55 | NUR ---
Respiratory/ambulation Sats have remained around 93% on 3-5L. Nebs have been helpful. Pt has coughed up small amount of thick clear sputum. Lungs decreased with scattered wheezes. Pt ambulated to the bathroom and back with no issues. Steady on feet.
[2016-12-09] VITALS (12 sets, daily range): BP systolic 111–149; BP diastolic 59–76; PULSE 69–120; RESP 16–26; O2SAT 92–98
[2016-12-09] MEDS: Heparin 5,000 Unit/mL Inj SUBQ SCH ×3 (00:23→16:30)
[2016-12-09] MEDS: 0.9% Sodium Chloride 1,000 ML IV SCH ×2 (01:59→12:32)
--- NOTE | 2016-12-09 02:06 | NUR ---
PAIN/COUGH Pt c/o a headache and discomfort from aggressive coughing. Pt given 1 capsule of Tessalon Pearles and 1 tab [place] with good results. Pt on 4L NC sating mid . No other issues noted @ this time. Addendum: 12/09/16 at 0639 by ERIS COWAN RN Pt decreased to 2L NC @ this time
[2016-12-09] MEDS: HYDROcodone-APAP 5-325 mg Tablet PO PRN ×3 (02:55→18:13)
[2016-12-09 03:29] LABS: BASOPHILS % (AUTO) 0.2 % (0-3); EOSINOPHILS % (AUTO) 4.5 % (0-5); MONOCYTES % (AUTO) 8.2 % (4-12); Mean Corpuscular Hemoglobin 26.8 pg (27.0-35.0); Mean Corpuscular Volume 88.7 fL (81-100); NEUTROPHILS % (AUTO) 76.5 % (40-74); Platelet Count 125 bil/L (150-400)
[2016-12-09] MEDS: Piperacillin-Tazo 3.375 Gm Inj 3.375 GM in Dextrose 5% Minibag Plus 50 ML IV SCH (03:43)
[2016-12-09] MEDS: Budesonide 0.5 mg/2 mL Inhalation Solution NEB SCH ×2 (07:28→19:58)
[2016-12-09] MEDS: Albuterol-Ipratropium 3 mL Inhalation Solution NEB SCH ×4 (07:28→19:58)
[2016-12-09] MEDS: Fluticasone 0.05% 15 Spray/2 Gm 16 Gm Nasal Spray NASAL SCH ×2 (08:22→19:28)
--- NOTE | 2016-12-09 12:44 | DRSVH ---
PROCEDURE: US RENAL SONOGRAM INDICATIONS: recurrent urinary tract infections TECHNIQUE: Real-time scanning was performed of the kidneys and bladder, with image documentation. COMPARISON: Renal ultrasound 07/04/2014 FINDINGS: Kidneys: Kidneys are normal in size. Right kidney measures 13.3 cm long; left kidney measures 13.0 cm long. Right renal cortical thickness is 1.0 cm; left renal cortical thickness is 1.4 cm. Renal c ortical echotexture is normal. No hydronephrosis or nephrolithiasis. No suspicious solid mass lesio ns. There is an exophytic cyst in the superior pole of the left kidney measuring 5.0 x 5.5 cm. This w as present on prior CT of 12/20/2015 Bladder: Pre-void bladder volume is 99 mL. Post-void residual is zero mL. Pre-void images demonstr ate no intraluminal masses or stones. On pre-void images, no ureteral jets are noted with color Dopp ler interrogation. (Of note, ureteral jets may not be detectable in up to 25% of cases due to insuff icient differences in specific gravity between ureteral and bladder urine). Miscellaneous: No free pelvic fluid. IMPRESSION: 1. Borderline renal cortical thinning right kidney. 2. No renal obstruction is identified. 3. 5.5 cm exophytic cyst upper pole left kidney. 4. No post void residual. Dictated by: Arnulfo Conklin M.D. on 12/09/2016 at 12:36 Approved by: Arnulfo Conklin M.D. on 12/09/2016 at 12:42
[2016-12-09] MEDS: diphenhydrAMINE 25 mg Capsule PO PRN (12:56)
--- NOTE | 2016-12-09 13:58 | CONS ---
[address] [address] CONSULTATION REPORT PATIENT: AZEB DUTTA : 1940 MR#: [id number] ADMIT: 12/06/2016 JOB ID: [id number] DATE OF SERVICE: 12/09/[address] Doroteo Talbert for this consult. REASON FOR CONSULTATION: Bacteremic complicated Proteus urinary tract infection. HISTORY OF PRESENT ILLNESS: The patient is a 76-year-old woman with longstanding home O2 dependent COPD. She has a variety of other medical problems including hypertension and recurrent urinary tract infections. She was admitted to this facility through the ED on the evening of December 06 because of severe left lower quadrant pain, which she reported was a 12/10 on the 1-10 scale. This had begun two days prior to that and was associated with nausea but no subjective fevers, rigors, dysuria, hematuria, or any other significant new symptom. She reported her chronic cough and shortness of breath due to her COPD were just about at baseline during the period when this left lower quadrant pain started. Since admission, she has been evaluated and aggressively treated with antibiotics which have included ceftriaxone, azithromycin, and now Zosyn. With this antibiotic arrangements, the patient has rapidly improved, and at this point, her left lower quadrant pain is essentially resolved. She still has no dysuria, urgency, frequency, or hematuria, nor she had at any point any true flank plain. Her cough and respiratory status continue at baseline. PAST MEDICAL HISTORY: 1. COPD, home O2 dependent. 2. Morbid obesity. 3. Recurrent UTIs. 4. Hypertension. SOCIAL HISTORY: The patient is an ex-cigarette smoker. She is a nondrinker and lives very close to the hospital. She uses a walker to get around much of the time at home. FAMILY HISTORY: Negative for tuberculosis in first-degree relatives. REVIEW OF SYSTEMS: Was done this afternoon. The patient has some minimal headache which has persisted since she was admitted 2-1/2 days ago. She also notes a very mild sore throat. No acute visual change. No stiff neck. She has a chronic cough which can last up to hours at a time and is usually relieved by oral marijuana. She also notes some wheezing and chronic shortness of breath which requires home oxygen. No substernal chest pain. She did have nausea before she came in, which has improved. No diarrhea at this point. She has not had dysuria, urgency, frequency, or hematuria at any point, nor has she had true flank pain, though she did have some left lower quadrant pain which has now resolved. She has chronic edema of her lower extremities. She notes that the edema, plus obesity, plus her need for oxygen restrict her mobility somewhat at home. Remainder of the review of systems is negative. PHYSICAL EXAMINATION: Reveals an afebrile woman. Temp 36.6, pulse 88, respiratory rate 20, blood pressure 114/74. She is saturating quite well on 2 L. She is in no acute distress, and she is alert and oriented. Head without trauma. Eyes without conjunctivitis. Oral cavity without pharyngitis or thrush. Neck is reasonably supple without adenopathy or JVD. Lungs clear bilaterally. Cardiac tones distant. Regular rate and rhythm are appreciated. Abdomen: Obese, soft, nontender. There is no flank tenderness. No left lower quadrant tenderness. No abdominal masses or ascites are appreciated. She does not have a Hull catheter. She does not have suprapubic fullness. No evidence of synovitis. No significant skin rash is noted. Neurologically, she is intact. She does have trace edema at the ankles. LABORATORIES: Include white count which was 14,500 shortly after admission. It is now normal at 8400. Her platelet count 125,000; is dipping while she is here in the hospital. Procalcitonin was 12.25 yesterday. It is down by half to 6.12 today. Her creatinine 0.66. LFTs basically normal except for an ALT of 65, albumin 3.4. Urinalysis with 6-10 white cells. Urine Legionella and pneumococcal antigens were done and were negative. MRSA screen was done and was negative. Sputum was obtained because of concerns about pneumonia. Was not a good sample as it had only a few polys. Blood and urine cultures from admission grew Proteus mirabilis which was resistant to Bactrim but very susceptible to quinolones, including both Cipro and levofloxacin. Nasopharyngeal PCR was done and was negative. The imaging was reviewed and we carefully reviewed the chest x-rays from this admission to prior films. They show chronic elevation of the right hemidiaphragm and possibly some atelectasis or subpulmonic-type infiltrate, but really not impressive as compared to prior films. IMPRESSION: This patient sounds as if perhaps she passed a kidney stone on the left. The technical maintenance technician is just finishing up the ultrasound of the kidneys and she does not see any hydronephrosis, hydroureter or stone, but I think that the history would be compatible with passing of a stone as she had very severe pain prior to admission, which was associated with leukocytosis and elevated procalcitonin, as well as bacteremia and bacteriuria. All this has improved dramatically since admission and the improvement seems almost too rapid just for a straightforward bacteremic urinary tract infection, and I suspect that there was some structural involvement like a stone. In any event, I see no evidence at this point, by clinical criteria or review of the chest x-rays for pulmonary infection and think she could be reasonably discharged on oral ciprofloxacin for treatment of her bacteremic urinary tract infection. RECOMMENDATIONS: 1. Will discontinue the azithromycin as she has already received three days which may be helpful in her COPD. 2. Will discontinue the Zosyn as it is not needed for this organism. 3. I would send her out on Cipro 500 p.o. b.i.d. to complete a total 10-day course of therapy, which would be about one more week or one could reasonably substitute levofloxacin. 4. In writing these prescriptions, we noticed there was a significant drug interaction with a muscle relaxer she takes, called tizanidine. We recommended she not take tizanidine until she finishes the Cipro or levofloxacin and the patient stated she understood that and would not take any until she was done. Note that the interaction would be that the patient could become overly sedated which could be hazardous since she lives alone and gets around with a walker.
[2016-12-09] MEDS ORDERED: Furosemide 10 mg/mL 4 mL Inj IVPUSH ONE (14:30)
--- NOTE | 2016-12-09 14:33 | PCM.PNMED ---
Subjective Date of Service Dec 09, 2016 Subjective Patient states she still feels tired, has continued to require somewhat on oxygen though is maintaining saturations in the mid to upper 90s. She states she still has a persistent cough which is productive of clear sputum. Has had some wheezes throughout the night. she is able to ambulate around the room to use the bathroom without difficulty. Today on interview patient states she feels pretty weak and tired and would like to stay for 1 more day in the hospital which I think is appropriate as we continue to monitor her response to the antibiotic therapy Exam Vital Signs Vital Sign - Last Date Time Temp Pulse Resp B/P Pulse Ox O2 Delivery O2 Flow Rate FiO2 12/09/16 13:58 69 18 96 Nasal Cannula 2.00 12/09/16 13:20 37.0 117/75 12/07/16 15:24 40 Intake and Output 12/08/16 12/08/16 12/09/16 Cumulative From/Thru 15:00 23:00 07:00 12/06/16 18:14 - 12/09/16 05:49 Intake Total 1775 ml 1510 ml 44966 ml Output Total 990 ml 800 ml 2240 ml Balance 785 ml 710 ml 8006 ml Intake Oral 780 ml 320 ml 2930 ml IV Total 995 ml 1190 ml 7316 ml Output Urine Total 990 ml 800 ml 2240 ml # Voids 6 # Bowel Movements 0 Exam General: Obese female Awake and alert lying in hospital bed in no acute distress , well-developed, well-nourished, arousable to voice, appropriately interactive HEENT: Normocephalic, atraumatic. Neck: Supple with full range of motion. No jugular venous distension. Cardiovascular: Regular rate and rhythm with no murmurs, rubs, or gallops appreciated Pulmonary: Diminished lung sounds upper and anterior lobes, expiratory wheezes bilaterally. Normal respiratory effort with no use of accessory muscles. Abdomen: Bowel tones present. Soft, nontender, nondistended. Extremities: Bilateral lower extremity edema, nonpitting. Skin: Normal temperature, turgor, and texture Neurological: Cranial nerves grossly intact. Psychiatric: Normal mood and affect. Alert and oriented to person, place, and time. IVs and Medications Medications Reviewed: Medications were reviewed in detail Lab and Diagnostics Laboratory Tests 72 Hours Test 12/06/16 18:45 12/06/16 20:45 12/07/16 05:45 12/08/16 03:25 White Blood Count 11.0th/mm3 (3.8-10.1) 14.5th/mm3 (3.8-10.1) 10.6th/mm3 (3.8-10.1) Red Blood Count 5.10mil/mm3 (3.90-5.20) 4.36mil/mm3 (3.90-5.20) 4.13mil/mm3 (3.90-5.20) Hemoglobin 13.6g/dL (12.0-15.6) 11.6g/dL (12.0-15.6) 11.2g/dL (12.0-15.6) Hematocrit 43.0% (35.0-46.0) 37.3% (35.0-46.0) 36.8% (35.0-46.0) Mean Corpuscular Volume 84.3fL (81-100) 85.6fL (81-100) 89.1fL (81-100) Mean Corpuscular Hemoglobin 26.7pg (27.0-35.0) 26.6pg (27.0-35.0) 27.1pg (27.0-35.0) Mean Corpuscular Hemoglobin Concent 31.6% (32.0-37.0) 31.1% (32.0-37.0) 30.4% (32.0-37.0) Red Cell Distribution Width 15.4% (12.3-15.4) 15.6% (12.3-15.4) 16.2% (12.3-15.4) Platelet Count 182bil/L (150-400) 158bil/L (150-400) 127bil/L (150-400) Neutrophils (%) (Auto) 90.3% (40-74) 89.9% (40-74) 82.2% (40-74) Lymphocytes (%) (Auto) 6.5% (14-46) 4.4% (14-46) 7.0% (14-46) Monocytes (%) (Auto) 1.8% (4-12) 5.2% (4-12) 8.0% (4-12) Eosinophils (%) (Auto) 0.6% (0-5) 0.1% (0-5) 2.1% (0-5) Basophils (%) (Auto) 0.3% (0-3) 0.1% (0-3) 0.2% (0-3) Sodium Level 141mEq/L (134-144) 144mEq/L (134-144) 144mEq/L (134-144) Potassium Level 3.5mEq/L (3.5-5.2) 3.3mEq/L (3.5-5.2) 3.3mEq/L (3.5-5.2) Chloride Level 98mEq/L (97-108) 101mEq/L (97-108) 103mEq/L (97-108) Carbon Dioxide Level 27mmol/L (18-29) 27mmol/L (18-29) 26mmol/L (18-29) Blood Urea Nitrogen 18mg/dL (8-27) 16mg/dL (8-27) 16mg/dL (8-27) Creatinine 0.75mg/dL (0.57-1.00) 0.78mg/dL (0.57-1.00) 1.00mg/dL (0.57-1.00) Estimat Glomerular Filtration Rate 108mL/min (>59) 103mL/min (>59) 78mL/min (>59) Glucose Level 137mg/dL (60-99) 160mg/dL (60-99) 148mg/dL (60-99) Lactic Acid Level 2.0mmol/L (0.4-2.0) Calcium Level 9.6mg/dL (8.5-10.1) 8.5mg/dL (8.5-10.1) 8.0mg/dL (8.5-10.1) Magnesium Level 2.1mg/dL (1.6-2.6) Total Bilirubin 0.4mg/dL (0.0-1.2) 0.5mg/dL (0.0-1.2) Aspartate Amino Transf (AST/SGOT) 26U/L (0-50) 58U/L (0-50) Alanine Aminotransferase (ALT/SGPT) 29U/L (0-32) 57U/L (0-32) Alkaline Phosphatase 79U/L (25-165) 72U/L (25-165) Total Protein 8.3g/dL (6.4-8.4) 6.1g/dL (6.4-8.4) Albumin 4.5g/dL (3.4-5.0) 3.7g/dL (3.4-5.0) Lipase 26U/L (13-60) Procalcitonin 0.02ng/mL (0.00-0.08) 0.87ng/mL (0.00-0.08) 12.25ng/mL (0.00-0.08) Hold Sanchez Top Tube Received (Received) Urine Color Yellow (YELLOW) Urine Appearance Cloudy (CLEAR,HAZY) Urine pH 8.0 (5.0-8.0) Urine Specific [place] 1.015 (1.003-1.035) Urine Protein Tracemg/dL (NEG,TRACE) Urine Glucose (UA) Negativemg/dL (NEGATIVE) Urine Ketones Negativemg/dL (NEGATIVE) Urine Occult Blood Large (NEGATIVE) Urine Nitrite Positive (NEGATIVE) Urine Bilirubin Negative (NEGATIVE) Urine Urobilinogen Normalmg/dL (NORMAL) Urine Leukocyte Esterase Moderate (NEGATIVE) Urine RBC 0-2/hpf (0-2) Urine WBC 6-10/hpf (0-5) Urine Epithelial Cells Moderate/hpf (NONE-MOD) Urine Crystals Amorphous phosphates Urine Bacteria Many/hpf (NONE-FEW) Urine Hyaline Casts None/lpf (NONE) Urine Granular Casts None seen (NONE SEEN) Urine Waxy Casts None seen (NONE SEEN) Urine Red Blood Cell Casts None seen (NONE SEEN) Urine White Blood Cell Casts None seen (NONE SEEN) Urine Mucus None seen (None Seen) Urine Trichomonas None seen (NONE SEEN) Urine Yeast None (NONE SEEN) Urinalysis Comment None Urine Culture Reflexed Indicated Urine Legionella pneumophilia Ag Negative (Negative) Band Neutrophils % 1% (1-5) Test 12/08/16 13:06 12/09/16 03:03 Lactic Acid Level 1.6mmol/L (0.4-2.0) White Blood Count 8.4th/mm3 (3.8-10.1) Red Blood Count 3.81mil/mm3 (3.90-5.20) Hemoglobin 10.2g/dL (12.0-15.6) Hematocrit 33.8% (35.0-46.0) Mean Corpuscular Volume 88.7fL (81-100) Mean Corpuscular Hemoglobin 26.8pg (27.0-35.0) Mean Corpuscular Hemoglobin Concent 30.2% (32.0-37.0) Red Cell Distribution Width 15.9% (12.3-15.4) Platelet Count 125bil/L (150-400) Neutrophils (%) (Auto) 76.5% (40-74) Lymphocytes (%) (Auto) 10.0% (14-46) Monocytes (%) (Auto) 8.2% (4-12) Eosinophils (%) (Auto) 4.5% (0-5) Basophils (%) (Auto) 0.2% (0-3) Band Neutrophils % 1% (1-5) Sodium Level 143mEq/L (134-144) Potassium Level 3.7mEq/L (3.5-5.2) Chloride Level 104mEq/L (97-108) Carbon Dioxide Level 27mmol/L (18-29) Blood Urea Nitrogen 9mg/dL (8-27) Creatinine 0.66mg/dL (0.57-1.00) Estimat Glomerular Filtration Rate 125mL/min (>59) Glucose Level 131mg/dL (60-99) Calcium Level 8.2mg/dL (8.5-10.1) Total Bilirubin 0.4mg/dL (0.0-1.2) Aspartate Amino Transf (AST/SGOT) 45U/L (0-50) Alanine Aminotransferase (ALT/SGPT) 65U/L (0-32) Alkaline Phosphatase 72U/L (25-165) Total Protein 5.7g/dL (6.4-8.4) Albumin 3.4g/dL (3.4-5.0) Procalcitonin 6.12ng/mL (0.00-0.08) Result Diagram: 12/09/16 03012/09/16 030 X-Rays, CTs and MRIs . X-RAY CHEST ONE VIEW, PORTABLE IMPRESSION: Changes of pneumonia in the left lower lung field laterally. Dictated by: Darnell Welsh M.D. on 12/06/2016 X-RAY CHEST ONE VIEW, PORTABLE IMPRESSION: 1. Left basilar infiltrate suspicious for pneumonia. 2. Chronic right hemidiaphragm elevation right basilar atelectasis. Dictated by: Roseline Contreras M.D. on 12/07/2016 US RENAL SONOGRAM IMPRESSION: 1. Borderline renal cortical thinning right kidney. 2. No renal obstruction is identified. 3. 5.5 cm exophytic cyst upper pole left kidney. 4. No post void residual. Dictated by: Arnulfo Conklin M.D. on 12/09/2016 Assessment & Plan is a 76 yo F with PMH of HTN, HLD, recurrent UTI, diverticuilitis, for lithiasis and COPD, admitted for possible pneumonia, UTI and abdominal pain. Sepsis, acute, present on admission, ongoing - On admit: T 38.2, P 122, R 24; likely source UTI, possible PNA - Now normotensive with regular rate, afebrile - 4 of 4 Blood cultures positive for gram-negative lucie - Urine grew Proteus mirabalis - Concern for possible aspiration - Infectious disease consult, recommendations appreciated - Antibiotic coverage changed to ciprofloxacin 500 mg by mouth daily - Tele - Treat underlying causes Urinary tract infection, acute, present on admission, ongoing - Patient denied any urinary symptoms such as dysuria, hematuria, flank pain; but did admit to recent history of left lower quadrant pain on admission - No current abdominal pain - Urinalysis as above and urine culture - Likely the source of sepsis as above - Continue antibiotics as above Possible pneumonia, likely acute, present on admission, ongoing - Patient reports history of significant lung disease without new respiratory symptoms including any increase above baseline in cough or sputum production - Antibiotics as noted above, we will continue azithromycin at this time secondary to anti-inflammatory effects - Pro-calcitonin elevated to 12, trending down to 6 today, continue to monitor - Appropriate cultures and serologies ordered, negative to date Bacteremia, present on admission, ongoing - Blood cultures as above - Antibiotics as above Constipation with resultant abdominal pain of left lower quadrant, acute, resolved at time of admission - Patient noted acute onset of abdominal pain . The morning of admission, self- administered laxatives with resultant diarrhea. No report of blood or abnormally colored stools - Abdominal pain, currently resolved - Most likely secondary to use of suppositories and resultant hypermotility of the colon - Continue to monitor Chronic hypoxemic respiratory failure secondary to advancing COPD, ongoing - Not likely an acute exacerbation secondary to lack of symptoms including increased sputum production, increase in cough baseline, or increase in oxygen needs - Patient reports home oxygen use approximately 2-3 L, notably with exertion but not required at rest - Patient states chronic sinusitis with productive cough - Outpatient websphere commerce consultant: Dr. Kylee Azul qidwa + accunebs q2h; no systemic steroids indicated at this time, hold home prednisone Hypothyroidism, chronic, presumed stable - Continue home levothyroxine Hypertension, chronic, presumed stable - Continue home furosemide, losartan - 1 dose IV Lasix given today Restless leg syndrome, chronic, presumed stable - Continue home tizanidine ausea, pain DVT: Hep q8 Diet: Heart GI: H2B IVF: NS 100 Code: FULL CODE Patient Status: Patient will most likely be discharged to home tomorrow, barring proper response to antibiotic therapy GI Prophylaxis: H2 tomy VTE Prophylaxis: Sub-Q Heparin (Unfractionated) VTE Mechanical Devices: Intermittant Pneumatic CD Resuscitation Status: DNR/DNI:Do Not Resuscitate/Intubate Time spent 30 minutes Attending Statement Patient has been seen and examined by myself with medical management specialist and agree with above history, physical, assessment and plan. JULI MULLINS DO Dec 09, 2016 14:33 Purvi Aguirre MD Dec 09, 2016 18:09
--- NOTE | 2016-12-09 16:16 | NUR ---
Allergies/lasix Pt stated that her headaches could be due to not getting her allergy pills. States they feel like "sinus headaches." PRN benadryl given, aware that pt would like something resembling what she was taking at home, which is listed in her PRN meds but not available via our pharmacy. Family may bring bottle from home. Pt began IV Lasix this shift, around 500cc urine output so far. Pale, clear. She has also been increasingly wheezy today. Ambulating to the bathroom without issues. Slightly unsteady but able to ambulate independently with SBA.
[2016-12-09] MEDS: guaiFENesin DM 200-20 mg/10 mL Syrup PO PRN (17:06)
--- NOTE | 2016-12-09 23:34 | NUR ---
resp/lasix: resident pan, pt. has not been receiving her home dose of lasix 20mg po bid, pt's feet more swollen and she is more sob, sats 94% on 3Lo2, lasix to be added to pt's EMAR
[2016-12-09] MEDS ORDERED: Furosemide 10 mg/mL 2 mL Inj IVPUSH ONE (23:40)
[2016-12-10] VITALS (11 sets, daily range): BP systolic 119–170; BP diastolic 79–94; PULSE 65–118; RESP 17–22; O2SAT 92–98
[2016-12-10] MEDS: Heparin 5,000 Unit/mL Inj SUBQ SCH ×4 (00:07→23:52)
[2016-12-10 04:18] LABS: BASOPHILS % (AUTO) 0.3 % (0-3); EOSINOPHILS % (AUTO) 2.5 % (0-5); MONOCYTES % (AUTO) 11.5 % (4-12); Mean Corpuscular Volume 87.3 fL (81-100); NEUTROPHILS % (AUTO) 71.4 % (40-74); Platelet Count 159 bil/L (150-400)
[2016-12-10] MEDS: Albuterol-Ipratropium 3 mL Inhalation Solution NEB SCH ×4 (06:00→15:57)
[2016-12-10] MEDS: HYDROcodone-APAP 5-325 mg Tablet PO PRN ×2 (07:33→20:30)
[2016-12-10] MEDS: Budesonide 0.5 mg/2 mL Inhalation Solution NEB SCH ×3 (08:30→20:40)
[2016-12-10] MEDS ORDERED: Furosemide 10 mg/mL 4 mL Inj IVPUSH SCH (08:30)
[2016-12-10] MEDS: Fluticasone 0.05% 15 Spray/2 Gm 16 Gm Nasal Spray NASAL SCH ×2 (08:42→20:10)
--- NOTE | 2016-12-10 09:57 | PROG NOTE ---
[address] [address] PROGRESS NOTE PATIENT: AZEB DUTTA : 1940 MR#: [id number] ADMIT: 12/06/2016 JOB ID: [id number] DATE: 12/10/2016 INFECTIOUS DISEASE FOLLOW UP NOTE: REASON FOR FOLLOWUP: Bacteremic Proteus urinary tract infection. The patient reports she is tolerating the oral ciprofloxacin well. No nausea, vomiting or diarrhea. She has had no fevers or chills overnight. No flank pain. No dysuria. PHYSICAL EXAMINATION: Reveals an afebrile woman. Temperature 37.1, pulse 75, respiratory rate 18, blood pressure 146/93. She is saturating well on 3 L nasal cannula. She is awake, alert and wants to go home. Examination of the oral cavity unremarkable. Lungs clear. No flank tenderness. No skin rash. LABORATORIES: Include a white count normal 7600, creatinine 0.61. Liver function tests basically normal except for an ALT 64. Procalcitonin is down to 4 from 6 yesterday and a peak of 12 two days ago. Micro reveals Proteus in blood and urine. Quite susceptible to Cipro with an REBECCA less than 0.25. IMAGING: No new imaging is available though yesterday's retroperitoneal ultrasound which we saw being performed in real time is reported as showing no obstruction and no stone. IMPRESSION: This patient has done very well with her bacteremic Proteus infection. Fortunately for her, it is very susceptible to Cipro which is an agent with excellent pharmacokinetics and good bactericidal activity. RECOMMENDATIONS: 1. The patient can be discharged today on Cipro as was discussed yesterday. 2. ID will sign off at this time.
--- NOTE | 2016-12-10 15:25 | PCM.PNMED ---
Subjective Date of Service Dec 10, 2016 Subjective Patient began to have episodes of supraventricular tachycardia while ambulating. Otherwise her vital signs have remained mostly stable, afebrile. White count is trended down to normal and pro-calcitonin continues to trend down. She has been responding quite well to her oral ciprofloxacin reporting no fever chills nausea or vomiting. She does however state that something feels "off" regarding her cardiac function. She will laboratory and imaging studies ordered to further ascertain cause of intermittent tachycardia. Exam Vital Signs Vital Sign - Last Date Time Temp Pulse Resp B/P Pulse Ox O2 Delivery O2 Flow Rate FiO2 12/10/16 13:28 98 12/10/16 12:05 37.0 18 140/82 93 Room Air 12/10/16 08:30 2.00 12/07/16 15:24 40 Intake and Output 12/09/16 12/09/16 12/10/16 Cumulative From/Thru 15:00 23:00 07:00 12/06/16 18:14 - 12/10/16 05:03 Intake Total 1132 ml 84840 ml Output Total 1500 ml 3740 ml Balance -368 ml 7638 ml Intake Oral 1000 ml 3930 ml IV Total 132 ml 7448 ml Output Urine Total 1500 ml 3740 ml # Voids 6 # Bowel Movements 0 Exam General: Obese female Awake and alert sitting up in hospital bed in no acute distress, well-developed, well-nourished. HEENT: Normocephalic, atraumatic. Neck: Supple with full range of motion. No jugular venous distension. Cardiovascular: Tachycardic rate and regular rhythm with no murmurs, rubs, or gallops appreciated Pulmonary: Diminished lung sounds upper and anterior lobes, slight expiratory wheezes heard bilaterally upper anterior lung olivares.. Normal respiratory effort with no use of accessory muscles. Abdomen: Bowel tones present. Soft, nontender, nondistended. Extremities: Bilateral lower extremity edema, nonpitting, improved from yesterday Skin: Normal temperature, turgor, and texture Neurological: Cranial nerves grossly intact. Psychiatric: Normal mood and affect. Alert and oriented to person, place, and time. IVs and Medications Medications Reviewed: Medications were reviewed in detail Lab and Diagnostics Result Diagram: 12/10/16 0355 12/10/16 0355 X-Rays, CTs and MRIs . X-RAY CHEST ONE VIEW, PORTABLE IMPRESSION: Changes of pneumonia in the left lower lung field laterally. Dictated by: Darnell Welsh M.D. on 12/06/2016 X-RAY CHEST ONE VIEW, PORTABLE IMPRESSION: 1. Left basilar infiltrate suspicious for pneumonia. 2. Chronic right hemidiaphragm elevation right basilar atelectasis. Dictated by: Roseline Contreras M.D. on 12/07/2016 US RENAL SONOGRAM IMPRESSION: 1. Borderline renal cortical thinning right kidney. 2. No renal obstruction is identified. 3. 5.5 cm exophytic cyst upper pole left kidney. 4. No post void residual. Dictated by: Arnulfo Conklin M.D. on 12/09/2016 Assessment & Plan is a 76 yo F with PMH of HTN, HLD, recurrent UTI, diverticuilitis, for lithiasis and COPD, admitted for possible pneumonia, UTI and abdominal pain. Sepsis, acute, present on admission, resolved - On admit: T 38.2, P 122, R 24; likely source UTI, possible PNA, bacteremia - Now normotensive with regular rate, afebrile - 4 of 4 Blood cultures positive for gram-negative lucie - Urine grew Proteus mirabalis - Concern for possible aspiration - Infectious disease consult, recommendations appreciated - Antibiotic coverage changed to ciprofloxacin 500 mg by mouth daily - Tele - Treat underlying causes Supraventricular tachycardia, not present on admission. Under evaluation Episodes of SVT while ambulating through room -Additional lab studies and echo pending -Continue telemetry Urinary tract infection, acute, present on admission, ongoing - Patient denied any urinary symptoms such as dysuria, hematuria, flank pain; but did admit to recent history of left lower quadrant pain on admission - No current abdominal pain - Urinalysis as above and urine culture - Likely the source of sepsis as above - Continue antibiotics as above Possible pneumonia, likely acute, present on admission, ongoing - Patient reports history of significant lung disease without new respiratory symptoms including any increase above baseline in cough or sputum production - Antibiotics as noted above - Pro-calcitonin elevated to 12, continues to trend down - Appropriate cultures and serologies ordered, negative to date Bacteremia, present on admission, ongoing - Blood cultures as above - Antibiotics as above Constipation with resultant abdominal pain of left lower quadrant, acute, resolved at time of admission - Patient noted acute onset of abdominal pain . The morning of admission, self- administered laxatives with resultant diarrhea. No report of blood or abnormally colored stools - Most likely secondary to use of suppositories and resultant hypermotility of the colon - Abdominal pain, currently resolved - Continue to monitor Chronic hypoxemic respiratory failure secondary to advancing COPD, ongoing Episode of acute on chronic hypoxic respiratory failure while in hospital requiring transfer to [facility], this resolved within a day. - Not likely an acute exacerbation secondary to lack of symptoms including increased sputum production, increase in cough baseline, or increase in oxygen needs - Patient reports home oxygen use approximately 2-3 L, notably with exertion but not required at rest - Patient states chronic sinusitis with productive cough - Outpatient machine edge bander: Dr. Pichardo - Jorge Alberto qidwa + accunebs q2h; no systemic steroids indicated at this time, hold home prednisone - Continue with oxygen supplementation and DuoNeb Hypothyroidism, chronic, presumed stable - Continue home levothyroxine - Thyroid panel pending Hypertension, chronic, presumed stable - Continue home furosemide, losartan Restless leg syndrome, chronic, presumed stable -Home tizanidine held nausea, pain DVT: Hep q8 Diet: Heart GI: H2B IVF: NS 100 Code: FULL CODE Patient Status: Patient will most likely be discharged to home tomorrow, barring proper response to antibiotic therapy GI Prophylaxis: H2 tomy VTE Prophylaxis: Sub-Q Heparin (Unfractionated) VTE Mechanical Devices: Intermittant Pneumatic CD Resuscitation Status: DNR/DNI:Do Not Resuscitate/Intubate Time spent 30 minutes Attending Statement Patient has been seen and examined by myself with biomedical scientist and agree with above history, physical, assessment and plan. JULI MULLINS DO Dec 10, 2016 15:25 Purvi Aguirre MD Dec 10, 2016 18:45
--- NOTE | 2016-12-10 16:16 | DRSVH ---
[facility] [address] [place] [address] Echocardiogram Report Name: AZEB DUTTA KStudy Date: 12/10/2016 Height: 66 in Hospital Exam Location: [facility] Weight: 277 lb Gender: Female BSA: 2.3 m2 : 1940 Age: 76 yrs BP: 146/ 93 mmHg Reason For Study: SVT Ordering Physician: HOSPITALIST [facility] Performed By: Nickie Booth Referring Physician: Paige Ivory Interpretation Summary The study quality was technically difficult. A contrast injection of Definity was performed to improve assessment of LV function. Left ventricular systolic function is probably normal. Left ventricular ejection fraction is estimated to be 55 +/- 5%. There are no obvious focal wall motion abnormalities noted but poor endocardial definition reduces the sensitivity for the detection of such. The right ventricle is mildly dilated. No significant valvular disease noted on this suboptimal exam, consider HAMMAD if clinically indicated. Procedure: A two-dimensional transthoracic echocardiogram with color flow and Doppler was performed. The study quality was technically difficult. Comparison is made with the echocardiogram of 12/20/2015. A contrast injection of Definity was performed to improve assessment of LV function. The patient was in normal sinus rhythm during the exam. Patient in and out of a fib. Left Ventricle: The left ventricle is normal in size. There is mild concentric left ventricular hypertrophy. Left ventricular systolic function is probably normal. Left ventricular ejection fraction is estimated to be 55 +/- 5%. There are no obvious focal wall motion abnormalities noted but poor endocardial definition reduces the sensitivity for the detection of such. Diastolic function could not be accurately assessed due to atrial fibrillation. Right Ventricle: The right ventricle is not well visualized. The right ventricle is mildly dilated. Atria: The left atrium is mildly dilated. Right atrial size is normal. There is no Doppler evidence for an interatrial shunt. Mitral Valve: The mitral valve is normal. There is trace mitral regurgitation. Aortic Valve: The aortic valve is normal in structure and function. No aortic regurgitation is present. Tricuspid Valve: The tricuspid valve is normal. There is trace tricuspid regurgitation. Pulmonic Valve: The pulmonic valve is not well visualized. There is a trace or physiologic amount of pulmonic regurgitation. Great Vessels: The aortic root is normal size. The ascending aorta is mildly enlarged. The aortic arch is at the upper limits of normal in size. The pulmonary is not well visualized. The IVC is dilated (diameter is greater than 2.1 cm) and it collapses less than 50% with a sniff. This suggests a high right atrial pressure of 15 mm Hg. Pericardium/ Pleura There is no pericardial effusion. There is an anterior echo-free space consistent with a fat pad. There is no pleural effusion. MMode/2D Measurements & Calculations LVIDd: 4.9 cm RA long axis LVOT diam: 2.1 cm LVIDs: 3.7 cm LA A2 area: 26.4 cm AoV Opening FS: 25.4 % LA A4 area: 25.6 cm RA area EPSS: 0.67 cm LA length (vol) Ao root diam IVSd: 1.2 cm : 15.5 cm LVPWd: 1.3 cm LA vol: 94.2 ml RA vol asc Aorta Diam LA vol index : 44.1 ml RA Ao Arch Diam (Prox : 19.2 mm2 Trans): 3.1 cm IVC diam: 2.8 cm LV snell. diameter/BSA LV sys. diameter/BSA (cm/m^2): 2.1 (cm/m^2): 1.6 Doppler Measurements & Calculations Ao V2 max MV E max bryan MV E/A: 0.79 TR max bryan : 147.4 cm/sec : 77.4 cm/sec Med Peak E' Bryan : 237.8 cm/sec Ao max PG MV A max bryan TR max PG : 8.7 mmHg : 97.4 cm/sec E/E' med: 8.6 : 22.6 mmHg Ao mean PG MV P1/2t: 62.5 msec Lat Peak E' Bryan PA V2 max : 116.5 cm/sec LVOT Max Bryan E/E' lat: 8.9 PA mean PG : 121.1 cm/sec E/e' average: 8.8 PA Accel Time CONSTANTINE(I,D): 2.6 cm : 0.07 sec sev ratio MV dec time MV P1/2t max bryan Ao V2 mean LV V1 max PG : 0.21 sec : 117.8 cm/sec MVA(P1/2t): 3.5 cm2 Ao V2 VTI: 31.4 cm LV V1 VTI CONSTANTINE(V,D): 2.9 cm2 : 22.6 cm PA V2 mean CONSTANTINE indexed to BSA : 71.8 cm/sec (cm^2/m^2): 1.1 Electronically signed by: Piotr Ballesteros on Reading Physician:12/10/2016 04:15 PM
[2016-12-10] MEDS: guaiFENesin DM 200-20 mg/10 mL Syrup PO PRN (16:30)
[2016-12-10] MEDS: diphenhydrAMINE 25 mg Capsule PO PRN (16:31)
--- NOTE | 2016-12-10 17:26 | NUR ---
telemetry changes/heparin/vitals Pt was very anxious all morning to discharge. manager monitoring noted multiple bursts of PSVT with HR going into the 140s. Recovered quickly each time. notified. Metoprolol ordered as well as echo and labs. MD discussed with pt that the discharge would need to be postponed until we know more. Pt expressed dissatisfaction but she is aware. noted pt is NOT to go off of telemetry for showering or any other reason at this time. Pt has been refusing heparin for her last 3 doses despite education on why she takes it. This evening pt had temp 37.5 BP 170/94. MD aware.
[2016-12-10] MEDS: Albuterol 2.5 mg/3 mL Inhalation Solution NEB PRN (17:30)
[2016-12-11] VITALS (10 sets, daily range): BP systolic 118–158; BP diastolic 74–89; PULSE 62–113; RESP 16–24; O2SAT 92–98
[2016-12-11] MEDS: HYDROcodone-APAP 5-325 mg Tablet PO PRN ×2 (01:54→20:42)
[2016-12-11 03:08] LABS: Free Thyroxine Index 1.8 (1.2-4.9)
[2016-12-11 04:33] LABS: BASOPHILS % (AUTO) 0.5 % (0-3); EOSINOPHILS % (AUTO) 2.9 % (0-5); Mean Corpuscular Hemoglobin 26.8 pg (27.0-35.0); Mean Corpuscular Volume 86.5 fL (81-100); NEUTROPHILS % (AUTO) 59.5 % (40-74); Platelet Count 177 bil/L (150-400)
[2016-12-11 05:12] LABS: Magnesium 2.1 mg/dL (1.6-2.6)
[2016-12-11] MEDS: guaiFENesin DM 200-20 mg/10 mL Syrup PO PRN ×2 (05:15→19:00)
[2016-12-11] MEDS ORDERED: Potassium Chloride 20 mEq SR Tablet PO ONE ×2 (06:25→16:40)
--- NOTE | 2016-12-11 07:23 | NUR ---
Tele/O2/Potassium/Pain Pt SR 60s-80s overnight w/ some SVT still noted on occasion, consistent w/ report. Highest rates seen in 120s but do not sustain, appears to occur mostly w/ activity. Pt on 3L NC overnight, takes O2 off to go to BR, refuses to wear it though comes back to bed very SOB. COLLAR TURNER used overnight, pt would take O2 off on occasion while asleep and sats seen to drop as low as 77. Recovers fast once awake and O2 back on. Pt awoke w/ coughing episode this morning, given PRN cough meds. Potassium 3.1 this morning,notified MD and new orders given. Pt given [place] for 5-6/10 headache w/ good effect overnight.
[2016-12-11] MEDS ORDERED: KCl 40 mEq/D5W 500 mL 40 MEQ in IV Premix 1 EACH IV ONE (07:50)
[2016-12-11] MEDS: Heparin 5,000 Unit/mL Inj SUBQ SCH ×3 (08:30→23:46)
[2016-12-11] MEDS: Fluticasone 0.05% 15 Spray/2 Gm 16 Gm Nasal Spray NASAL SCH ×2 (08:47→20:40)
[2016-12-11] MEDS: Budesonide 0.5 mg/2 mL Inhalation Solution NEB SCH (09:26)
[2016-12-11] MEDS: Albuterol-Ipratropium 3 mL Inhalation Solution NEB SCH ×3 (09:27→20:19)
[2016-12-11] MEDS: predniSONE 20 mg Tablet PO SCH (14:43)
--- NOTE | 2016-12-11 14:43 | PCM.PNMED ---
Subjective Date of Service Dec 11, 2016 Subjective She remains anxious to discharge from hospital though understands reasoning behind prolonged stay. Telemetry shows multiple bursts of PSVT with rate going into the 140s. In interview today patient states she feels not quite 100% and understands reasoning behind one more day of observation. She remains on telemetry and prednisone was initiated. She has no chest pain or shortness of breath but does feel as if she cannot achieve maximal air movement. Exam Vital Signs Vital Sign - Last Date Time Temp Pulse Resp B/P Pulse Ox O2 Delivery O2 Flow Rate FiO2 12/11/16 12:25 37.5 96 18 158/79 95 Nasal Cannula 12/11/16 09:27 3.00 12/07/16 15:24 40 Intake and Output 12/10/16 12/10/16 12/11/16 Cumulative From/Thru 15:00 23:00 07:00 12/06/16 18:14 - 12/10/16 18:04 Intake Total 200 ml 640 ml 72060 ml Output Total 1100 ml 4840 ml Balance -900 ml 640 ml 7378 ml Intake Oral 200 ml 640 ml 4770 ml IV Total 7448 ml Output Urine Total 1100 ml 4840 ml # Voids 5 11 # Bowel Movements 0 Exam General: Obese female Awake and alert sitting up in hospital bed in no acute distress, well-developed, well-nourished. Nasal cannula in place HEENT: Normocephalic, atraumatic. Neck: Supple with full range of motion. No jugular venous distension. Cardiovascular: Tachycardic rate and regular rhythm with no murmurs, rubs, or gallops appreciated Pulmonary: Diminished lung sounds upper and anterior lobes, slight expiratory wheezes heard bilaterally upper anterior lung olivares. Extremities: Mild bilateral lower extremity edema, nonpitting, continues to improve Skin: Normal temperature, turgor, and texture Neurological: Cranial nerves grossly intact. Psychiatric: Normal mood and affect. Alert and oriented to person, place, and time. IVs and Medications Medications Reviewed: Medications were reviewed in detail Lab and Diagnostics Result Diagram: 12/11/16 6895 12/11/16 6717 X-Rays, CTs and MRIs . X-RAY CHEST ONE VIEW, PORTABLE IMPRESSION: Changes of pneumonia in the left lower lung field laterally. Dictated by: Darnell Welsh M.D. on 12/06/2016 X-RAY CHEST ONE VIEW, PORTABLE IMPRESSION: 1. Left basilar infiltrate suspicious for pneumonia. 2. Chronic right hemidiaphragm elevation right basilar atelectasis. Dictated by: Roseline Contreras M.D. on 12/07/2016 US RENAL SONOGRAM IMPRESSION: 1. Borderline renal cortical thinning right kidney. 2. No renal obstruction is identified. 3. 5.5 cm exophytic cyst upper pole left kidney. 4. No post void residual. Dictated by: Arnulfo Conklin M.D. on 12/09/2016 Cardiac Echo Impressions . Echocardiogram Report Interpretation Summary: The study quality was technically difficult. A contrast injection of Definity was performed to improve assessment of LV function. Left ventricular systolic function is probably normal. Left ventricular ejection fraction is estimated to be 55 +/- 5%. There are no obvious focal wall motion abnormalities noted but poor endocardial definition reduces the sensitivity for the detection of such. The right ventricle is mildly dilated. No significant valvular disease noted on this suboptimal exam, consider HAMMAD if clinically indicated. Electronically signed by: [facility] & Plan is a 76 yo F with PMH of HTN, HLD, recurrent UTI, diverticuilitis, for lithiasis and COPD, admitted for possible pneumonia, UTI and abdominal pain. Sepsis, acute, present on admission, resolved - On admit: T 38.2, P 122, R 24; likely source UTI, possible PNA, bacteremia - Now normotensive, afebrile though has episodes of tachycardia - 4 of 4 Blood cultures positive for gram-negative lucie - Urine grew Proteus mirabalis - Concern for possible aspiration - Infectious disease consult, recommendations appreciated - Antibiotic coverage changed to ciprofloxacin 500 mg by mouth daily - Tele - Treat underlying causes Supraventricular tachycardia, not present on admission. Under evaluation Episodes of SVT while ambulating through room, most likely secondary to COPD -Echo as above -Increased medical management to improve respiratory function -Continue telemetry Urinary tract infection, acute, present on admission, ongoing - Patient denied any urinary symptoms such as dysuria, hematuria, flank pain; but did admit to recent history of left lower quadrant pain on admission - No current abdominal pain - Urinalysis as above and urine culture - Likely the source of sepsis as above - Continue antibiotics as above Possible pneumonia, likely acute, present on admission, ongoing - Patient reports history of significant lung disease without new respiratory symptoms including any increase above baseline in cough or sputum production - Antibiotics as noted above - Pro-calcitonin elevated to 12, continues to trend down - Appropriate cultures and serologies ordered, negative to date Bacteremia, present on admission, ongoing - Blood cultures as above - Antibiotics as above Constipation with resultant abdominal pain of left lower quadrant, acute, resolved at time of admission - Patient noted acute onset of abdominal pain . The morning of admission, self- administered laxatives with resultant diarrhea. No report of blood or abnormally colored stools - Most likely secondary to use of suppositories and resultant hypermotility of the colon - Abdominal pain, currently resolved - Continue to monitor Chronic hypoxemic respiratory failure secondary to advancing COPD, ongoing Episode of acute on chronic hypoxic respiratory failure while in hospital requiring transfer to [facility], this resolved within a day. - Not likely an acute exacerbation secondary to lack of symptoms including increased sputum production, increase in cough baseline, or increase in oxygen needs - Patient reports home oxygen use approximately 2-3 L, notably with exertion but not required at rest - Patient states chronic sinusitis with productive cough - Outpatient personal chef: Dr. Pichardo - Duonebs qidwa + accunebs q2h; no systemic steroids indicated at this time, hold home prednisone - Continue with oxygen supplementation and DuoNeb - Prednisone 10 mg daily Hypothyroidism, chronic, presumed stable - Continue home levothyroxine - Thyroid panel confirms diagnosis Hypertension, chronic, presumed stable - Continue home furosemide, losartan Restless leg syndrome, chronic, presumed stable -Home tizanidine held nausea, pain DVT: Hep q8 Diet: Heart GI: H2B IVF: NS 100 Code: FULL CODE Patient Status: Patient will most likely discharge tomorrow, steroids initiated. We will continue to monitor for one more night on telemetry. GI Prophylaxis: H2 tomy VTE Prophylaxis: Sub-Q Heparin (Unfractionated) VTE Mechanical Devices: Intermittant Pneumatic CD Resuscitation Status: DNR/DNI:Do Not Resuscitate/Intubate Attending Statement The patient was seen and examined together with on December 11 and I agree with the history, exam findings, and plan as outlined in the note above. I did participate in all aspects of the services provided today, including documentation and the plan of care. We will continue to treat her urinary tract infection and probable pneumonia with antibiotics. We will continue her corticosteroids as well as bronchodilators and follow her general progress. She will likely be stable for discharge within the next 1 day. JULI MULLINS DO Dec 11, 2016 14:43 Darin Carmona MD Dec 13, 2016 08:30
--- NOTE | 2016-12-11 17:19 | NUR ---
Social Work: Readiness for Discharge/Multidisciplinary Rounds D: Pt discussed in multidisciplinary rounds; the patient is not yet medically stable for discharge. Anticipate d/c in 1-2 days; no needs identified at this time. PT evaluation has been ordered to assess pt's mobility- this has not been completed at this time. LINUX VMWARE ADMINISTRATOR met with the patient at bedside to assess for unmet needs and discuss discharge planning. Pt states that she has been ambulating I to the bathroom and intends to discharge home. She does not feel she will need any supportive services from home health. She states that her daughter will transport her when she is medically stable. No needs identified. A: Pt who is I at baseline and lives alone in [place]. P: Evolving; Anticipate pt to discharge home via POV. LINUX [employer] ADMINISTRATOR to follow up with PT evaluation/recommendations once completed and continue to follow to assess for unmet d/c needs. MARIA INES Waldrop
--- NOTE | 2016-12-11 17:56 | NUR ---
Potassium, Non-compliance 0834 - Spoke to Dr. Carmona to clarify her potassium replacement medications (K+ 3.1) as there were orders for both IV and PO potassium. He said to give her the by mouth potassium and he would discontinue the IV. 0945 - Discussed her care with Dr. Carmona, Dr. Talbert, and the rest of the multidisciplinary care team during morning rounds. It was said that she may be discharging tonight. 1401 - Aurelio-paged Dr. Carmona as her recheck potassium lab work only showed an increase to 3.2. Asked if he wanted more potassium to be given. An order was placed for the potassium replacement protocol. Per the Protocol she was given another 40 mEq of PO potassium and a lab recheck was ordered. 4671 - Went in her room to give her some medication. She refused the SubQ Heparin for the 2nd time today. She also said that she took a shower. She said, "The Doctor told me I could." This nurse remembers Dr. Talbert saying to this nurse that she could not take off her telemetry for a shower. Spoke to the Manager Hi who said her telemetry was off between about 1515 and 1558. Spoke to Dr. Talbert about this and told him that the patient was doing well and did not seem to have any current cardiac issues. Informed him that she had been non-compliant in a number of ways during the day. He said it was okay for this time. Care continues.
[2016-12-12] VITALS (8 sets, daily range): BP systolic 133–145; BP diastolic 62–90; PULSE 62–75; RESP 16–20; O2SAT 93–95
[2016-12-12] MEDS: diphenhydrAMINE 25 mg Capsule PO PRN ×2 (01:40→07:48)
[2016-12-12 04:40] LABS: Mean Corpuscular Hemoglobin 27.2 pg (27.0-35.0); Mean Corpuscular Volume 87.1 fL (81-100); NEUTROPHILS % (AUTO) 81 % (40-74); Platelet Count 182 bil/L (150-400)
[2016-12-12 04:41] LABS: BASOPHILS % (AUTO) 0 % (0-3); EOSINOPHILS % (AUTO) 2 % (0-5); MONOCYTES % (AUTO) 8 % (4-12)
[2016-12-12 04:49] LABS: Magnesium 2.2 mg/dL (1.6-2.6)
[2016-12-12] MEDS: HYDROcodone-APAP 5-325 mg Tablet PO PRN (05:47)
--- NOTE | 2016-12-12 06:13 | NUR ---
Pain/Tele pt c/o arthritis pain and a headache /10 x2 this shift. Administered 1 Tab hydrocodone x2 and effective. Pt had only a couple of very short (3 second) bursts of PSVT this shift. VSS and Tele SR
[2016-12-12] MEDS: predniSONE 20 mg Tablet PO SCH (07:48)
[2016-12-12] MEDS: Heparin 5,000 Unit/mL Inj SUBQ SCH (07:49)
[2016-12-12] MEDS: Fluticasone 0.05% 15 Spray/2 Gm 16 Gm Nasal Spray NASAL SCH (07:49)
[2016-12-12] MEDS: Albuterol-Ipratropium 3 mL Inhalation Solution NEB SCH ×2 (08:06→11:17)
[2016-12-12] MEDS: Budesonide 0.5 mg/2 mL Inhalation Solution NEB SCH (08:07)
--- NOTE | 2016-12-12 14:14 | DRSVH ---
PROCEDURE: CT ANGIO CHEST PULMONARY EMBOLISM ([id number]) INDICATIONS: dyspnea TECHNIQUE: After the administration of intravenous contrast, 2 mm thick sections acquired from the pulmonary api rosemary to the posterior costophrenic angles. 3-dimensional maximum intensity projection (MIP) coronal a nd sagittal reformats were then acquired through the thorax. For radiation dose reduction, the follo wing was used: automated exposure control, adjustment of mA and/or kV according to patient size. COMPARISON: [facility], CT, CT CHEST WO CON, 02/01/2016, 15:02. [facility], CT, CHEST ANGIO-PE, 04/18/2014, 17:11. FINDINGS: Image quality: Limited by artifact. Pulmonary arteries: Pulmonary arteries are normal in size, and demonstrate no central intraluminal f illing defects to suggest central pulmonary embolism. Lungs and pleura: Moderate air space opacity within the right posterior lung base is present. Left ba silar scarring versus atelectasis is present. No pleural effusions or pneumothorax. Central and ricardo pheral airways are patent. Mediastinum: Heart size is normal, without pericardial effusion. There is calcification of the abiola nary vasculature. No mediastinal or hilar adenopathy. Thoracic aorta is normal in caliber and enhanc ement. Esophagus is normal in caliber, without hiatal hernia. Bones and chest wall: No suspicious bony lesions. Ribs and thoracic spine appear intact throughout. Thyroid gland is within normal limits. No axillary or supraclavicular adenopathy. Abdomen: Visualized portions of the upper abdomen demonstrate diffusely decreased hepatic density, a s before, as well as an incompletely visualized left superior pole renal cyst. IMPRESSION: 1. No central pulmonary embolus. 2. Right lung base pneumonia. Followup chest CT in 3 months recommended to ensure resolution and to t he underlying malignancy. 3. Hepatic steatosis. Dictated by: Hossein Vazquez M.D. on 12/12/2016 at 14:02 Approved by: Hossein Vazquez M.D. on 12/12/2016 at 14:12
--- NOTE | 2016-12-12 14:26 | NUR ---
Social Work: Readiness for Discharge/Multidisciplinary Rounds D: Pt discussed in multidisciplinary rounds. The patient has completed a PT evaluation and was ambulating 200 feet SBA with FWW. Recommendation is for home health for PT/OT. Resident provider agrees and has place CM order to coordinate HH for PT/OT. WAY INSPECTOR met with the patient at bedside to review discharge recommendations. The patient does not feel that she needs these services but states that "If it helps me get out of here, I'll do it." WAY INSPECTOR clarified patient's homebound status which she confirms that she is. HH CHOICE LIST PROVIDED. Pt has no preference. Referral to be provided to [facility], per rotating vendor calendar. t/c to Kb Avila Liadavid with [facility], to provide referral. F2F not yet completed. Access provided. They will follow and will contact the patient after discharge to arrange for intake visit. A: Pt who lives at home with her daughter and is homebound. P: Anticipate pt to discharge home via POV with [facility] for PT/OT. WAY INSPECTOR to continue to follow to assess for unmet d/c needs. MARIA INES Waldrop
--- NOTE | 2016-12-12 14:56 | PCM.DIMED ---
Discharge Instructions Date of Service Dec 12, 2016 Dates of Hospitalization Dec 06, 2016 at 22:26 Discharge Diagnosis Discharge Diagnosis Sepsis, resolved Supraventricular tachycardia, improved. Urinary tract infection, proteus and improved. Community acquired pneumonia, improving. Bacteremia, resolved. Acute on chronic hypoxemic respiratory failure , stable. Chronic COPD, stable. Hypothyroidism, stable Hypertension, stable Restless leg syndrome, stable Diet Discharge Diet: Heart Healthy Activity Discharge Activity: Limited until seen by PCP Patient Instructions Follow-up Provider: Jen Munguia MD Follow-up with PCP in: 1 week Darin Carmona MD Dec 12, 2016 14:56
[2016-12-12] MEDS ORDERED: PRED-508 PO (14:58)
[2016-12-12] MEDS ORDERED: CEFU500T61 PO (14:58)
--- NOTE | 2016-12-12 15:07 | PCM.DC.MED ---
Discharge Summary Date of Service Dec 12, 2016 Dates of Hospitalization Date of Hospital Admission Dec 06, 2016 at 22:26 Date of Discharge: Dec 12, 2016 Providers: Admitting Physician: Ady Blanca MD Primary Care Physician: Jen Munguia MD Attending Physician: Darin Calles MD Diagnosis at Time of Discharge Diagnosis at Time of Discharge Sepsis, resolved Supraventricular tachycardia, improved. Urinary tract infection, proteus and improved. Community acquired pneumonia, improving. Bacteremia, resolved. Acute on chronic hypoxemic respiratory failure , stable. Chronic COPD, stable. Hypothyroidism, stable Hypertension, stable Restless leg syndrome, stable Consultations None Procedures XRay, CTs & MRIs . X-RAY CHEST ONE VIEW, PORTABLE IMPRESSION: Changes of pneumonia in the left lower lung field laterally. Dictated by: Darnell Welsh M.D. on 12/06/2016 X-RAY CHEST ONE VIEW, PORTABLE IMPRESSION: 1. Left basilar infiltrate suspicious for pneumonia. 2. Chronic right hemidiaphragm elevation right basilar atelectasis. Dictated by: Roseline Contreras M.D. on 12/07/2016 US RENAL SONOGRAM IMPRESSION: 1. Borderline renal cortical thinning right kidney. 2. No renal obstruction is identified. 3. 5.5 cm exophytic cyst upper pole left kidney. 4. No post void residual. Dictated by: Arnulfo Conklin M.D. on 12/09/2016 CT angiogram of the chest on the day of discharge negative for pulmonary embolism but did reveal a right base infiltrate. Recommendations for repeat CT scan in 3 months. Cardiac Echo Impression . Echocardiogram Report Interpretation Summary: The study quality was technically difficult. A contrast injection of Definity was performed to improve assessment of LV function. Left ventricular systolic function is probably normal. Left ventricular ejection fraction is estimated to be 55 +/- 5%. There are no obvious focal wall motion abnormalities noted but poor endocardial definition reduces the sensitivity for the detection of such. The right ventricle is mildly dilated. No significant valvular disease noted on this suboptimal exam, consider HAMMAD if clinically indicated. Electronically signed by: Piotr Ballesteros Invasive Procedures None Brief History Ms. Bryanna Oseguera (Kay) is a 76-year-old woman with a past medical history significant for hypertension, hyperlipidemia, recurrent urinary tract infections , diverticulitis, nephrolithiasis, and COPD, that presented to the emergency department 12/06/2016 with a one-day history of constipation that led to left lower quadrant pain after administration of juyg-vht-[id number] laxatives. Initial evaluations in the emergency department revealed a chest x-ray with a possible left lower lobe pneumonia in addition to urinary studies that revealed a likely urinary tract infection. She is admitted for evaluation and treatment of possible pneumonia, likely UTI, and management of her abdominal pain. 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 She attempted to relieve her constipation and straining with [id number] laxatives, including a Fleet glycerin suppository. She subsequently developed 2 episodes of diarrhea, which were described as nonbloody, but she states her left lower quadrant abdominal pain began with her episodes of diarrhea. She denies any associated shortness of breath above baseline, fever, hematochezia, melena, dysuria, hematuria, or chest pain or palpitations. She does admit to brief onset of chills while she was in the emergency department, which have resolved. She also notes that her abdominal pain has resolved since her time in the emergency department. She notes an extensive history of shortness of breath on chronic oxygen therapy approximately 2-3 L secondary to COPD, she denies any acute dyspnea above baseline. She also notes a chronic cough with intermittent productive sputum, that is not above her baseline. She notes a recent history of prednisone use, but states her prednisone pack has completed, and she remains on inhaled steroids at this time. PCP is Jaylene Munguia, pecan gatherer is Dr. Ning Pichardo. Last pulmonology visit dated 06/20/2016; most recent PCP visit dated 11/18/2016. In the ED, T 38.2, P1 122, R 24, blood pressure 171/71, 93% on 3 L nasal cannula ; initial labs showed white count 11.0 with 80.3% neutrophils, hemoglobin 13.6, hematocrit 43.0, platelets 182; sodium 141, potassium 3.5, creatinine 0.75, glucose 137, lactic acid 2.0, LFTs within range, lipase 26; UA revealed large amount of occult blood, positive nitrites, moderate leukocyte esterase, moderate epithelial cells, and no white cells seen, culture was sent and pending ; blood cultures were also obtained prior to antibiotic administration; initial therapies included azithromycin 500 mg 1, ceftriaxone 2 g every 24h, acetaminophen 975 mg 1, and 1 L normal saline. Patient was transported to medical floor in stable condition. Hospital Course is a 76 yo F with PMH of HTN, HLD, recurrent UTI, diverticuilitis, for lithiasis and COPD, admitted for possible pneumonia, UTI and abdominal pain. Sepsis, acute, present on admission, resolved - On admit: T 38.2, P 122, R 24; likely source UTI, possible PNA, bacteremia - Now normotensive, afebrile though has episodes of tachycardia - 4 of 4 Blood cultures positive for gram-negative lucie - Urine grew Proteus mirabalis - Concern for possible aspiration - Infectious disease consult, recommendations appreciated - Antibiotic coverage changed to ciprofloxacin 500 mg by mouth daily - Tele - Treat underlying causes Supraventricular tachycardia, not present on admission. Under evaluation Episodes of SVT while ambulating through room, most likely secondary to COPD -Echo as above -Increased medical management to improve respiratory function -Continue telemetry Urinary tract infection, acute, present on admission, ongoing - Patient denied any urinary symptoms such as dysuria, hematuria, flank pain; but did admit to recent history of left lower quadrant pain on admission - No current abdominal pain - Urinalysis as above and urine culture - Likely the source of sepsis as above - Continue antibiotics as above Possible pneumonia, likely acute, present on admission, ongoing - Patient reports history of significant lung disease without new respiratory symptoms including any increase above baseline in cough or sputum production - Antibiotics as noted above - Pro-calcitonin elevated to 12, continues to trend down - Appropriate cultures and serologies ordered, negative to date Bacteremia, present on admission, ongoing - Blood cultures as above - Antibiotics as above Constipation with resultant abdominal pain of left lower quadrant, acute, resolved at time of admission - Patient noted acute onset of abdominal pain . The morning of admission, self- administered laxatives with resultant diarrhea. No report of blood or abnormally colored stools - Most likely secondary to use of suppositories and resultant hypermotility of the colon - Abdominal pain, currently resolved - Continue to monitor Chronic hypoxemic respiratory failure secondary to advancing COPD, ongoing Episode of acute on chronic hypoxic respiratory failure while in hospital requiring transfer to [facility], this resolved within a day. - Not likely an acute exacerbation secondary to lack of symptoms including increased sputum production, increase in cough baseline, or increase in oxygen needs - Patient reports home oxygen use approximately 2-3 L, notably with exertion but not required at rest - Patient states chronic sinusitis with productive cough - Outpatient pecan gatherer: Dr. Pichardo - Jorge Alberto qidwa + accunebs q2h; no systemic steroids indicated at this time, hold home prednisone - Continue with oxygen supplementation and DuoNeb - Prednisone 10 mg daily Hypothyroidism, chronic, presumed stable - Continue home levothyroxine - Thyroid panel confirms diagnosis Hypertension, chronic, presumed stable - Continue home furosemide, losartan Restless leg syndrome, chronic, presumed stable -Home tizanidine held Hospital Course: She was initially admitted for sepsis and found to have Proteus urinary tract infection and bacteremia. She also had acute on chronic hypoxic respiratory failure. She does have a history of chronic COPD. She was started on steroids and received bronchodilators as well as antibiotics. Initial chest x-ray was suggestive of possible pneumonia which was ultimately confirmed with a chest CT angiogram. She had intermittent SVT which was primarily associated with exertion. She has noted history of exertional palpitations which likely related to her severe lung disease. She also had mild hyperglycemia while on corticosteroids. She did meet criteria for sepsis of admission as outlined above but ultimately did improve and resolve these criteria. Plenty of discharge she felt at her baseline was able to walk independently with her walker. Her daughter is at bedside and in agreement with her being at baseline and over both her being discharged home. She agrees to see her doctor within the next week. Exam Vital Signs (Last) Date Time Temp Pulse Resp B/P Pulse Ox O2 Delivery O2 Flow Rate FiO2 12/12/16 11:56 36.5 69 18 145/90 95 Nasal Cannula 3.00 12/07/16 15:24 40 Exam Patient was seen and examined on the day of discharge Test 12/06/16 18:45 12/06/16 20:45 12/08/16 13:06 12/09/16 03:03 Lipase 26U/L (13-60) Hold Sanchez Top Tube Received (Received) Urine Color Yellow (YELLOW) Urine Appearance Cloudy (CLEAR,HAZY) Urine pH 8.0 (5.0-8.0) Urine Specific [place] 1.015 (1.003-1.035) Urine Protein Tracemg/dL (NEG,TRACE) Urine Glucose (UA) Negativemg/dL (NEGATIVE) Urine Ketones Negativemg/dL (NEGATIVE) Urine Occult Blood Large (NEGATIVE) Urine Nitrite Positive (NEGATIVE) Urine Bilirubin Negative (NEGATIVE) Urine Urobilinogen Normalmg/dL (NORMAL) Urine Leukocyte Esterase Moderate (NEGATIVE) Urine RBC 0-2/hpf (0-2) Urine WBC 6-10/hpf (0-5) Urine Epithelial Cells Moderate/hpf (NONE-MOD) Urine Crystals Amorphous phosphates Urine Bacteria Many/hpf (NONE-FEW) Urine Hyaline Casts None/lpf (NONE) Urine Granular Casts None seen (NONE SEEN) Urine Waxy Casts None seen (NONE SEEN) Urine Red Blood Cell Casts None seen (NONE SEEN) Urine White Blood Cell Casts None seen (NONE SEEN) Urine Mucus None seen (None Seen) Urine Trichomonas None seen (NONE SEEN) Urine Yeast None (NONE SEEN) Urinalysis Comment None Urine Culture Reflexed Indicated Urine Legionella pneumophilia Ag Negative (Negative) Lactic Acid Level 1.6mmol/L (0.4-2.0) Band Neutrophils % 1% (1-5) Test 12/10/16 03:55 12/12/16 03:50 Thyroid Stimulating Hormone (TSH) 3.860uIU/mL (0.450-4.500) Free Thyroxine Index 1.8 (1.2-4.9) Thyroxine (T4) 8.0ug/dL (4.5-12.0) Triiodothyronine (T3) Uptake 23% (24-39) White Blood Count 9.1th/mm3 (3.8-10.1) Red Blood Count 3.79mil/mm3 (3.90-5.20) Hemoglobin 10.3g/dL (12.0-15.6) Hematocrit 33.0% (35.0-46.0) Mean Corpuscular Volume 87.1fL (81-100) Mean Corpuscular Hemoglobin 27.2pg (27.0-35.0) Mean Corpuscular Hemoglobin Concent 31.2% (32.0-37.0) Red Cell Distribution Width 15.2% (12.3-15.4) Platelet Count 182bil/L (150-400) Neutrophils (%) (Auto) 81% (40-74) Lymphocytes (%) (Auto) 6% (14-46) Monocytes (%) (Auto) 8% (4-12) Eosinophils (%) (Auto) 2% (0-5) Basophils (%) (Auto) 0% (0-3) Metamyelocytes % 3% (0-0) Sodium Level 145mEq/L (134-144) Potassium Level 4.1mEq/L (3.5-5.2) Chloride Level 103mEq/L (97-108) Carbon Dioxide Level 29mmol/L (18-29) Blood Urea Nitrogen 11mg/dL (8-27) Creatinine 0.54mg/dL (0.57-1.00) Estimat Glomerular Filtration Rate 158mL/min (>59) Glucose Level 173mg/dL (60-99) Calcium Level 8.5mg/dL (8.5-10.1) Magnesium Level 2.2mg/dL (1.6-2.6) Total Bilirubin 0.2mg/dL (0.0-1.2) Aspartate Amino Transf (AST/SGOT) 24U/L (0-50) Alanine Aminotransferase (ALT/SGPT) 49U/L (0-32) Alkaline Phosphatase 76U/L (25-165) Total Protein 5.9g/dL (6.4-8.4) Albumin 3.3g/dL (3.4-5.0) Procalcitonin 1.23ng/mL (0.00-0.08) Microbiology Results Blood cultures 2 and urine culture revealed Proteus, sensitive to Cipro and cephalosporins. Discharge Medications Discharge Medications ([chlorpheniramine ER]) 12MG 12 MG ORAL Q 12 HOURS (Reported) ([Daily Multiple tab]) Unknown Strength 1 TAB ORAL DAILY (Reported) take with food ([Vitamin D-400]) Unknown Strength 1 TAB ORAL DAILY (Reported) ([Vivarin]) 200mg 200 MG ORAL Twice a week (Reported) ([Stool Softner]) 1 CAPSULE ORAL HS (Reported) Ascorbate Calcium/Bioflavonoid (Roxana-C 500 mg Tablet) Unknown Strength Tablet 2 TAB PO BID (Reported) Budesonide/Formoterol 160-4.5 mcg Inh (Symbicort 160-4.5 mcg Inh) 120 Puff Inhaler 2 PUFF INHALATION BID (Reported) Cefuroxime Axetil (Cefuroxime) 500 Mg Tablet 500 MG PO BID Prescribed by: DARIN CALLES MD Fluticasone Propionate (Flonase Allergy Relief) 50 Mcg/Actuation [place].susp 1 SPRAY NS 1-2 times daily (Reported) 1 spray in each nostril Furosemide (Lasix) 20 Mg Tablet 20 MG PO BID (Reported) take in the morning and afternoon Levothyroxine (Levothyroxine) 50 Mcg Tablet 50 MCG PO DAILY (Reported) take on empty stomach Losartan Potassium (Losartan Potassium) 50 Mg Tablet 50 MG PO DAILY (Reported) Montelukast (Montelukast) 10 Mg Tablet 10 MG PO HS (Reported) [place]-3 Fatty Acids (Fish Oil) Unknown Strength Capsule.dr 1 TAB PO DAILY ( Reported) Potassium Chloride ER (Potassium Chloride ER) 10 Meq Tablet 10 MEQ PO DAILY ( Reported) TAKE WITH FOOD Pramipexole Dihydrochloride (Mirapex) 0.5 Mg Tablet 0.5 MG PO QID (Reported) Prednisone (PredniSONE) 5 Mg Tab 5 MG PO DAILY (Reported) take with food Prednisone (Deltasone) 20 Mg Tablet 40 MG PO DAILY Prescribed by: DARIN CALLES MD Ranitidine (Ranitidine) 150 Mg Capsule 150 MG PO BID (Reported) for heartburn or reflex. Tiotropium [place] (Spiriva) 18 Mcg Cap.w.dev 18 MCG INHALATION DAILY Prescribed by: KESHIA PABLO MD As needed Albuterol HFA (Proair HFA) 8.5 Gm Hfa.aer.ad 2 PUFFS INHALATION every 4-6 hours PRN PRN For Shortness of Breath (Reported) Strength 90mcg/actuation Albuterol Neb Soln (Albuterol Neb Soln) 2.5 Mg/3 Ml Vial.neb 2.5 MG NEB Q4H PRN PRN For Shortness of Breath (Reported) Aspirin (Aspirin) 325 Mg Tablet.dr 325 MG PO DAILY PRN PRN For Pain (Reported) Hydrocodone-Acetaminophen 5-325 mg (Hydrocodone-Acetaminophen 5-325 mg) 1 Each Tablet 1 EACH PO QID PRN PRN For Pain (Reported) Tizanidine (Tizanidine) 4 Mg Tablet 4 MG PO 2-3 times a day PRN PRN muscle spasm (Reported) Miscellaneous Medications ([Pedia-Lax]) Unknown Strength Unknown Dose RECTAL (Reported) For constipation Followup Plan Disposition: Home Discharge Diet: Heart Healthy Discharge Activity: Limited until seen by PCP Follow-up Provider: Jen Munguia MD Follow-up with PCP in: 1 week Time spent 40 minutes Darin Calles MD Dec 12, 2016 15:07
--- NOTE | 2016-12-12 16:00 | NUR ---
Discharge 0800 - Spoke to Fredo from Physical Therapy (PT) who said he would try to come work with her. 0852 - Got report from Fredo who said she walked down the hallway and refused her O2. Her SpO2 dropped to 83%. Fredo placed O2 on her and her SpO2 increased to high 88-92%. 0945 - Discussed her care with Dr. Talbert, Dr. Carmona, and the rest of the multidisciplinary care team during morning rounds. Discussed her possibly being able to discharge today if her ordered CT was negative. 1039 - Tried to call CT back as they had left a message. Was unable to reach them so left a message. 1100 - CT called and was given a report. Said they would likely come to get her in 30 minutes. 1318 - Called CT as they had not been up to get the patient yet. They said the transporter would be arriving in 10 minutes and could come get her then. 1332 - She was taken to CT. 1355 - She returned from CT to [facility] 2028 and was settled back into her room. 1439 - She wanted to know if she could discharge now. Paged Dr. Carmona that her CT scan results were back and she was eager to leave. He came by to see her and placed discharge orders. 1545 - She discharged at this time. Her two IVs and telemetry were discontinued intact. Told her that staff would arrange to have an Oxygen tank for her ride home. She said that she didn't want Oxygen and that she would be fine on the way home. Tried to educate her on her need for Oxygen, but she refused. Partially discussed with and have her the discharge paperwork (2 prescriptions, care notes, instructions). She didn't want this nurse to go over all of the instructions with her. She said, "I have a college education. I can read it myself." She also wanted to make her own appointment with her doctor for a follow-up check. She was wheeled out with all her belongings by the [facility] where her daughter came to drive her home. She thanked staff for their care.
--- NOTE | 2016-12-12 16:31 | NUR ---
Social Work: Discharge D: RADIO INTERFERENCE TROUBLE SHOOTER met with the patient to confirm her discharge plan. She states that her daughter is coming to pick her up. The patient is now informing [employer]IO INTER[employer]ENCE TROUBLE SHOOTER that she does not want home health and does not feel that she can commit to being homebound. She will follow up with outpatient PT services. RADIO INTERFERENCE TROUBLE SHOOTER updated attending MD of this. RADIO INTERFERENCE TROUBLE SHOOTER cancelled home health order with [facility] A: Pt who lives at home with her daughter P: Pt to discharge home via POV and no sw needs. MARIA INES Waldrop
== END 2016-12-12 15:51 | disposition home or self-care (01) | DRG 871 ==
LOC: SED 18:09 → MPC 22:26 → PCC 12-07 08:42
PROVIDERS: ADMIT Hospitalist; ATTEND Hospitalist
DX: A41.9 Sepsis, unspecified organism (principal); J18.9 Pneumonia, unspecified organism; J96.21 Acute and chronic respiratory failure with hypoxia; J96.10 Chronic respiratory failure, unspecified whether with hypoxia or hypercapnia; N39.0 Urinary tract infection, site not specified; I47.1 Supraventricular tachycardia; J44.9 Chronic obstructive pulmonary disease, unspecified; E66.01 Morbid (severe) obesity due to excess calories; B96.4 Proteus (mirabilis) (morganii) as the cause of diseases classified elsewhere; G25.81 Restless legs syndrome; I10 Essential (primary) hypertension; E03.9 Hypothyroidism, unspecified; Z66 Do not resuscitate; Z99.81 Dependence on supplemental oxygen; Z79.82 Long term (current) use of aspirin; Z79.51 Long term (current) use of inhaled steroids